=== PATIENT | male | born 1955 | race Caucasian/White ===

== ENCOUNTER 2020-06-19 10:14 | Inpatient (IN) | payer MEDICARE, SELFPAY ==
[2020-06-19] VITALS (62 sets, daily range): BP systolic 119–163; BP diastolic 57–79; PULSE 61–102; RESP 19–65; TEMP 36.1–37.7; O2SAT 66–100; BMI 28.3
--- NOTE | ~2020-06-19 | XR_ITS ---
EXAMINATION: XR chest ET placement INDICATION: Endotracheal tube insertion TECHNIQUE: Portable AP chest at 0943 hours COMPARISON: 06/28/2020 FINDINGS: An endotracheal tube has been inserted which ends 7.4 cm above the maria m. A nasogastric tu be has been inserted which ends in the stomach. There are diffuse opacities throughout all lung zones with worsening in the lung bases. The cardiomediastinal silhouette is normal. No definite pleural ef fusion or pneumothorax is identified. A right upper extremity PICC ends with its tip at the superior cavoatrial junction. IMPRESSION: 1. Endotracheal tube 7.4 cm above the maria m. Nasogastric tube in the stomach. 2. Diffuse lung disease with interval worsening in the lung bases, consistent with pneumonia and/or p ulmonary edema and/or acute respiratory distress syndrome (ARDS). Reviewed, dictated and finalized at location A. ICATION PACKAGING CONSULTANT IMPRESSION: 1. Endotracheal tube 7.4 cm above the maria m. Nasogastric tube in the stomach. 2. Diffuse lung disease with interval worsening in the lung bases, consistent w ith pneumonia and/or pulmonary edema and/or acute respiratory distress syndrome (ARDS).
--- NOTE | ~2020-06-19 | XR_ITS ---
EXAMINATION: XR chest 1V portable EXAM DATE: 06/28/2020 16:48 INDICATION: Worsening shortness of breath with exertion for 6 days. COVID pneumonia. PICC line placem ent. TECHNIQUE: Portable AP frontal chest x-ray was obtained. Comparison is made to prior examination from 06/27/2020, 06/23, 06/19. FINDINGS: There is a right-sided PICC line with tip projecting over the cavoatrial junction. Compare d to the prior chest x-rays, suspect mild interval progression in amount of acute airspace disease, r adiographically could be edema or infection. Probably COVID pneumonia given history provided. No pneu mothorax or pleural effusion. The cardiomediastinal silhouette is prominent but magnified on this AP technique. IMPRESSION: 1. PICC line in position. 2. Suspect mild progression in moderate to severe amount of acute airspace disease likely COVID pneu monia. Reviewed, dictated and finalized at location A. HET MACHINE OPERATOR IMPRESSION: 1. PICC line in position. 2. Suspect mild progression in moderate to severe amount of acute airspace dis ease likely COVID pneumonia.
--- NOTE | ~2020-06-19 | XR_ITS ---
EXAMINATION: XR chest 1V portable DATE: 06/27/2020 09:40 INDICATION: COVID 19 pneumonia. Worsening hypoxia. TECHNIQUE: frontal view of the chest was obtained. COMPARISON: Chest radiograph dated 06/23/2020 FINDINGS: Interval increase in diffuse bilateral interstitial and patchy airspace opacities relatively sparing the apices of the lungs. No pleural effusion or pneumothorax. The cardiomediastinal silhouette is nor mal. IMPRESSION: 1. Increasing diffuse bilateral lung disease relatively sparing the apices which could represent wors ening pneumonia, pulmonary edema or combination thereof. Reviewed, dictated and finalized at location A. DDER TENDER PEAT IMPRESSION: 1. Increasing diffuse bilateral lung disease relatively sparing the apices whic h could represent worsening pneumonia, pulmonary edema or combination thereof.
--- NOTE | ~2020-06-19 | XR_ITS ---
EXAMINATION: XR chest 1V portable DATE: 06/23/2020 10:26 INDICATION: COVID. TECHNIQUE: frontal view of the chest was obtained. COMPARISON: Chest radiograph and CT dated 06/19/2020 FINDINGS: Again seen are patchy groundglass opacities in the bilateral mid and lower lung zones. Resolution of the previous opacities in the upper lung zones. Slight increase in the density of the opacities in th e left lower lung zone. No pleural effusion or pneumothorax. The cardiomediastinal silhouette is norm al. IMPRESSION: 1. Bilateral lung disease with improvement in the bilateral upper lung zones and slight worsening in the left lower lung zone. Differential would include pneumonia, pulmonary edema or some combination t hereof. Reviewed, dictated and finalized at location A. D TAX AUDITOR IMPRESSION: 1. Bilateral lung disease with improvement in the bilateral upper lung zones an d slight worsening in the left lower lung zone. Differential would include pneu monia, pulmonary edema or some combination thereof.
--- NOTE | ~2020-06-19 | CT_ITS ---
EXAMINATION: CTA chest PE protocol DATE: 06/19/2020 11:45 INDICATION: Shortness of breath. TECHNIQUE: Computed tomography angiography (CTA) of the chest was performed with 100 mL Omnipaque-350 intravenous contrast timed to evaluate the pulmonary arteries. Coronal maximum intensity projection 3D-reconstructions were created by the technologist. Automated exposure control and iterative reconst ruction technique were employed. The dose-length product was 486.70 mGy-cm. COMPARISON: Chest single view 06/19/2020 FINDINGS: There are widespread groundglass opacities with smooth septal thickening. There are patchy airspace opacities in the upper and posterior lungs. There are small pleural effusions. The heart siz e is normal. No pericardial effusion. There is no pulmonary embolus. There are bridging endplate oste ophytes at multiple levels in the spine, consistent with diffuse idiopathic skeletal hyperostosis (DI SH). IMPRESSION: 1. No pulmonary embolism. Sensitivity is moderately decreased by motion artifact. 2. Diffuse lung disease, likely a combination of pulmonary edema and pneumonia. 3. Small pleural effusions. Reviewed, dictated and finalized at location A. Y MOBILE EQUIPMENT REPAIRER IMPRESSION: 1. No pulmonary embolism. Sensitivity is moderately decreased by motion artifac t. 2. Diffuse lung disease, likely a combination of pulmonary edema and pneumonia. 3. Small pleural effusions.
--- NOTE | ~2020-06-19 | XR_ITS ---
EXAMINATION: XR chest 1V portable INDICATION: Shortness of breath TECHNIQUE: Portable AP chest at 1056 hours COMPARISON: None available FINDINGS: There are patchy airspace opacities throughout all lung zones. There is no pleural effusion or pneumothorax. The cardiomediastinal silhouette is normal. IMPRESSION: 1. Diffuse lung disease which may reflect pneumonia and/or pulmonary edema. Reviewed, dictated and finalized at location A. ICAL AIDE
--- NOTE | 2020-06-19 10:17 | ECG_ITS ---
Measurements Intervals [place] Rate: 94 P: 43 NM: 100 QRS: 3 QRSD: 102 T: -8 QT: 355 QTc: 445 Interpretive Statements SINUS RHYTHM WITH SHORT NM INTERVAL LEFT ATRIAL ENLARGEMENT INCOMPLETE RIGHT BUNDLE BRANCH BLOCK BORDERLINE ST-T WAVE ABNORMALITY- ANTEROLAT/INF LEADS BASELINE ARTIFACT- I, II, III, AVL, AVF, V1-V3 BORDERLINE ECG Electronically Signed On 06-19-2020 11:08:49 ZONE MAINTENANCE TECHNICIAN by Simone Fields D.O.
--- NOTE | 2020-06-19 10:19 | ED.SOB ---
HPI - SOB/Dyspnea General Chief Complaint: Shortness of Breath/Dyspnea Stated Complaint: resp distress Time Seen by Provider: 06/19/20 10:16 Source: patient Mode of arrival: ambulatory Limitations: no limitations History of Present Illness HPI Narrative: Patient is a 64-year-old male brought in by EMS due to respiratory distress. Per EMS when they arrived his oxygen saturation room air was 40%. Patient was placed on 15 L nonrebreather brought his oxygen saturation up to 82%. Patient states that he has been slightly short of breath 4 days ago, worse today accompanied by cough. Patient denies any chest pain, abdominal pain, nausea, vomiting, diarrhea, fever or chills. Related Data Home Medications Medication Instructions Recorded Confirmed atorvastatin 20 mg PO DAILY 06/19/20 Allergies Allergy/AdvReac Type Severity Reaction Status Date / Time No Known Allergies Allergy Verified 06/19/20 10:34 Review of Systems Review of Systems: All systems reviewed & are unremarkable except as noted in HPI and below Constitutional: Constitutional: Denies body ache(s), Denies chills, Denies excessive sweating, Denies fatigue, Denies fever(s), Denies headache(s), Denies lethargy, Denies malaise, Denies weakness and Denies weight loss Eyes: Eyes: Denies blurry vision, Denies change in vision and Denies loss of vision ENT: Denies dizziness, Denies ear discharge, Denies headache(s), Denies lip swelling, Denies epistaxis, Denies nasal congestion, Denies neck pain, Denies throat swelling and Denies tongue swelling Cardiovascular: Cardiovascular: Denies chest pain, Denies chest pain at rest, Denies chest pain with activity, Denies diaphoresis, Denies rapid heart rate, Denies edema, Denies irregular heart rhythm, Denies lightheadedness and Denies palpitations Respiratory: Respiratory: Denies chest congestion, Denies cough and Denies hemoptysis Gastrointestinal: Gastrointestinal: Denies abdominal pain, Denies melena, Denies hematochezia, Denies diarrhea, Denies nausea, Denies vomiting and Denies hematemesis Musculoskeletal: Musculoskeletal: Denies abnormal gait, Denies deformity, Denies joint swelling, Denies limited range of motion, Denies neck pain and Denies numbness Neurologic: Denies Abnormal speech present, Denies abnormal gait, Denies confusion, Denies dizziness, Denies headache(s), Denies focal weakness, Denies loss of vision, Denies numbness, Denies Other visual disturbances, Denies Sensory deficit (Neuro) and Denies weakness Psychiatric: Psychiatric: Denies confusion, Denies depression, Denies auditory hallucinations, Denies homicidal ideation and Denies suicidal ideation Endocrine: Endocrine: Denies cold intolerance, Denies excessive sweating, Denies fatigue, Denies heat intolerance and Denies palpitations Hematologic/Lymphatic: Hematologic/Lymphatic: Denies easy bleeding and Denies easy bruising Allergic/Immunologic: Allergic/Immunologic: Denies lip swelling, Denies throat swelling and Denies tongue swelling PMFSH Social History Social History Gender identity (if verbalized by the patient): Male Exam Const: General: ill appearing Nutritional Appearance: well nourished Orientation/consciousness: oriented to person, oriented to place, oriented to time, patient oriented x3 and No confusion Limitations: no limitations Other: Severe distress HENMT: Head: normal to inspection, normocephalic and atraumatic Ears: hearing grossly normal bilaterally, TM normal on the right and TM normal on the left General nose exam: Normal external nose present, Normal nares present and No nasal discharge present Face and sinus: normal facial exam Mouth: Yes Normal oral and palatal mucosa present, Yes lip normal, Yes tongue normal and Yes oropharynx normal Throat: posterior oropharynx normal, tonsils normal and uvula midline Eyes: General: appearance normal, both eyes and all related structures Pupil
[2020-06-19] MEDS: ALBUTEROL SULFATE NEB 2.5 MG/0.5 ML INH 5 MG INHALATION (10:32)
[2020-06-19] MEDS: IPRATROPIUM BR 0.02% INH SOLN 0.5 MG/2.5 ML VIAL INHALATION (10:33)
[2020-06-19 10:37] LABS: Hematocrit 41.3 % (42.0-52.0); Hemoglobin 13.8 g/dL (14.0-18.0); Mean Corpuscular HGB Conc 33.4 g/dl (32-36); Mean Corpuscular Volume 89.8 fl (80-100); Mean Platelet Volume 9.9 fl (7.4-10.4); Platelet Count Result 344 k/mm3 (150-375); Red Cell Distribution Width 13.9 % (11.5-14.5); White Blood Count 16.1 K/mm3 (4.5-10.0)
[2020-06-19] MEDS: DEXAMETHASONE SOD PHOS INJ 4 MG/ML VIAL 10 MG IV PUSH (10:37)
[2020-06-19 10:42] LABS: Alveolar/Arterial O2 Gradient 611.7 mmHg; Base Excess ABG -0.3 mEq/l (+/-2.0); Device NON-INVASIVE VENT; Fractional Inspired Oxygen 100 %; Modified Allen's Test Pass; Oxygen Content ABG 18.2 %vol (16.0-22.0); Oxygen Saturation ABG 95.7 % (95.0-100.0); Oxyhemoglobin 93.9 % THb (90.0-100.0); PCO2 ABG 29.6 mmHg (35.0-45.0); PO2 ABG 71.7 mmHg (80.0-100.0); PO2 FiO2 Ratio Arterial Blood 0.72 %; Site Drawn RIGHT RADIAL; Total Hemoglobin 13.8 g/dL (12.0-18.0); pH ABG 7.489 (7.350-7.450)
[2020-06-19 10:43] LABS: Non-Invasive Expiratory Pressure 5 CMH2O; Non-Invasive Inspiratory Pressure 12 CMH2O; Non-Invasive Vent Rate 4 /MIN
[2020-06-19 10:45] LABS: INR 1.2; Prothrombin Time 15.6 Seconds (11.1-14.7)
[2020-06-19 10:46] LABS: Partial Thromboplastin Time 27.2 SECONDS (22.3-36.8)
[2020-06-19 10:46] LABS: Anisocytosis 1+ (NORMAL); Lymphocytes Absolute Manual 0.48 K/mm3 (1.1-4.5); Monocytes Absolute Manual 0.96 K/mm3 (0.1-0.90); Monocytes Percent Manual 6 % (3-9); Neutrophils Percent Manual 91 % (46-73); Nucleated Red Blood Cells 1 %; Platelet Estimate Adequate (Adequate); Total Cells Counted 100
[2020-06-19 10:47] LABS: Tear Drop Cells 1+ (NORMAL)
[2020-06-19 11:02] LABS: D Dimer 1.83 ug/mL (<0.48)
[2020-06-19 11:13] LABS: Alanine Aminotransferase 41 U/L (4-50); Albumin Level 3.7 g/dL (3.5-5.1); Alkaline Phosphatase 79 U/L (38-126); Anion Gap 14 mmol/L (8-16); Aspartate Amino Transferase 71 U/L (17-59); Bilirubin,Total 0.8 mg/dL (0.2-1.3); Blood Urea Nitrogen 26 mg/dL (9-20); Calcium 8.1 mg/dL (8.4-10.2); Carbon Dioxide 26 mmol/L (22-30); Chloride 97 mmol/L (98-107); Estimated Glomerular Filt Rate 51; Glucose 156 mg/dL (75-110); NT Pro B Type Natriuretic Pept 4370 PG/ML (5-100); Potassium 3.9 mmol/L (3.4-5.0); Sodium 137 mmol/L (137-145); Troponin I 0.494 ng/mL (0.000-0.034)
[2020-06-19] MEDS: ASPIRIN 81 MG CHEWABLE TABLET 324 MG PO (11:59)
--- NOTE | 2020-06-19 12:05 | PC.NURSE ---
Spoke with - Isaura - over the phone. She was requesting an update - explained that pt is on O2 and will most likely to be admitted. She states she will call back later for an update
--- NOTE | 2020-06-19 15:01 | PC.NURSE ---
resting on stretcher. on threat monitoring analyst. lights off. on bipap. update given to patient's via phone.
--- NOTE | 2020-06-19 17:43 | PC.NURSE ---
report given to Camryn BRIZUELA. will transfer patient to 209. will contact respiratory for O2 required to transport. also updated.
--- NOTE | 2020-06-19 17:55 | PC.NURSE ---
this RN to bedside to get patient ready for transfer to 209. sat on bipap 85-86%. patient alert. repositioned in bed. respiratory notified and at bedside. will transfer to 209 on NRB and back on bipap. patient aware.
--- NOTE | 2020-06-19 18:22 | ADMGEN ---
This patient, Que Luna, was admitted to IMU Room 209-01 at 1815. Patient/family oriented to hospital policies and general routines including ID bracelet, bed and alarms, visiting hours, pain management, procedures, bathroom and other care routines, personal items, smoking policy, room service/diet, and visiting hours. Information on how to activate the Rapid Response Team has been discussed. Patient/Family are encouraged to report perceived risks to care and to ask questions if they do not understand what they are told or what they should do.
--- NOTE | 2020-06-19 19:16 | PM.IMHP ---
H&P: HPI History of Present Illness Date/Time: 06/19/20 19:16 Chief Complaint: Shortness of breath Narrative: Que Luna is a 64 year old male who has a history of hyperlipidemia. The patient stated that he has been home bound since COVID started. He does not know of anybody that has COVID. He does not believe that he has COVID or been exposed to COVID. 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 To respiratory distress. The patient arrived his oxygen level was 40% on room air. The patient was placed on a 15 L non-rebreather and brought his oxygen level to 82%. Patient has been slightly short of breath for at least the last 4 days. He also had a cough. But no fever chills. No abdominal pain no chest pain no nausea vomiting or diarrhea. No fever no chills.Disease which may reflect pneumonia or pulmonary edema.. Sensitivity is moderately decreased by motion artifact. Diffuse lung disease likely a combination pulmonary edema pneumonia. Small pleural effusions. Like a community-acquired pneumonia and was started on a azithromycin Rocephin. The patient was given a nebulizer treatment and aspirin. The patient was started on a BiPAP machine. The patient is awake and conversing. His white count is 16.1. COVID test is pending. Arterial blood gases were drawn. PH was 7.489 and PO2 was 71.7. He was also given Decadron and inhalers. Patient is being admitted to inpatient on the date of service 06/19/2020 Review of Systems Review of Systems: All systems reviewed & are unremarkable except as noted in HPI and below Constitutional: Constitutional: Reports as per HPI and Reports no additional constitutional complaints Eyes: Eyes: Reports as per HPI and Reports no additional eye complaints ENT: Reports system reviewed and no additional complaints, except as documented and Reports Normal hearing present Cardiovascular: Cardiovascular: Reports no additional cardiovascular complaints Respiratory: Respiratory: Reports no additional respiratory complaints and Reports no additional respiratory complaints Gastrointestinal: Gastrointestinal: Reports as per HPI and Reports no additional gastrointestinal complaints Musculoskeletal: Musculoskeletal: Reports no additional musculoskeletal complaints Integumentary/Breasts: Skin/Breast: Reports system reviewed and no additional complaints, except as docu and Reports as per HPI Neurologic: Reports system reviewed and no additional complaints, except as documented, Reports as per HPI and Reports Normal hearing present Psychiatric: Psychiatric: Reports no additional psychiatric complaints and Reports as per HPI Endocrine: Endocrine: Reports no additional endocrine complaints Hematologic/Lymphatic: Hematologic/Lymphatic: Reports no additional hematologic/lymphatic complaints Allergic/Immunologic: Allergic/Immunologic: Reports no additional allergic/immunologic complaints [facility] Past Medical History Medical History (Updated 06/19/20 @ 19:32 by Valentina Perez NP) Glaucoma Hyperlipidemia Surgical History Surgical History (Updated 06/19/20 @ 19:25 by Valentina Perez NP) H/O removal of cyst Left thumb Family History Family History (Updated 06/19/20 @ 19:25 by Valentina Perez NP) Father Aneurysm Mother Failure to thrive Social History Social History (Updated 06/19/20 @ 19:27 by Valentina Perez NP) Social History: The patient tells me that he lives with his . 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 He has 2 children. He is a full code. But he would not like to be on a ventilator for a prolonged amount of time. His is the durable power prosecuting attorney for healthcare. He has never smoked or used marijuana or any illicit drugs. Smoking status: Never smoker Gender identity (if verbalized by the patient): Male Meds Home Medications and Allergies Home Medications Medication Instructions Recorded Conf
[2020-06-19 20:54] LABS: SARS-CoV-2 RNA PCR Positive
[2020-06-19] MEDS: ALBUTEROL SULFATE (*SP) AEROSOL 1 PUFF 2 PUFF INHALATION (22:15)
--- NOTE | 2020-06-19 22:18 | ECG_ITS ---
Measurements Intervals [place] Rate: 59 P: 59 NC: 104 QRS: 17 QRSD: 89 T: -18 QT: 574 QTc: 573 Interpretive Statements SINUS BRADYCARDIA WITH SHORT NC INTERVAL INCOMPLETE RIGHT BUNDLE BRANCH BLOCK MINIMAL Q WAVES- ANTEROLAT/HIGH LAT LEADS BORDERLINE ST-T WAVE ABNORMALITY- INFERIOR LEADS PROLONGED QT INTERVAL BASELINE ARTIFACT- I, III, AVR, AVL, AVF, V2-V4 ABNORMAL ECG Electronically Signed On 06-20-2020 13:47:28 RENTAL SALES ASSOCIATE by Simone Fields D.O.
[2020-06-19 23:06] LABS: Alanine Aminotransferase 33 U/L (4-50); Estimated CRCL calculation 71 ml/min; Estimated Glomerular Filt Rate > 60
[2020-06-19 23:23] LABS: Troponin I 0.247 ng/mL (0.000-0.034)
[2020-06-19] MEDS: REMDESIVIR 200 MG/NS 250 ML 200 MG/250 ML BAG 250 MG IVPB (23:39)
[2020-06-20] VITALS (17 sets, daily range): BP systolic 120–138; BP diastolic 55–67; PULSE 55–88; RESP 20–48; TEMP 36.1–37.7; O2SAT 90–100
--- NOTE | 2020-06-20 | ECHO_ITS ---
Patient Info Name: Que Luna Age: 64 years : 1955 Gender: Male Ht: 72 in Wt: 208 lbs BSA: 2.21 m2 HR: 63 bpm BP: 129 / 67 mmHg Technical Quality: Good Exam Date: 06/20/2020 11:01 AM Exam Location: [facility] Patient Status: Inpatient Admit Date: 06/19/2020 Staff Ordering Physician: Valentina Perez NP Electric Locomotive Crane Operator: John Paul Shook RDCS, RT Attending Provider: Clyde Montanez MD Referring Physician: Ana SOLIZ; Exam Type: CA echo doppler color flow Study Info Indications I50.9 - Heart failure, unspecified Complete two-dimensional, color flow and Doppler transthoracic echocardiogram is performed. Strain analysis performed. Summary 1. Complete two-dimensional, color flow and Doppler transthoracic echocardiogram is performed. 2. Left ventricular chamber dimension is normal. 3. Left ventricular systolic function is normal, estimated at 60-65%. 4. The left ventricular diastolic function is normal. 5. E/e' 8 is minimally elevated. 6. Global longitudinal strain is abnormal at -14.7%. 7. There is mild mitral valve regurgitation. 8. There is mild tricuspid valve regurgitation. 9. Mild pulmonary hypertension, estimated pulmonary arterial systolic pressure is 45 mmHg. 10. There is trivial pericardial effusion. Left Ventricle E/e' 8 is minimally elevated. Global longitudinal strain is abnormal at -14.7%. Left ventricular chamber dimension is normal. Left ventricular systolic function is normal, estimated at 60-65%. The left ventricular diastolic function is normal. Right Ventricle Right ventricular chamber dimension is normal. Right ventricular systolic function is normal. Left Atria Left atrial chamber dimension is normal. Right Atria Right atrial chamber dimension is normal. Aortic Valve The aortic valve is trileaflet. There is no aortic valve stenosis. There is no aortic valve regurgitation. Pulmonic Valve There is no pulmonic regurgitation. Mitral Valve There is no mitral valve stenosis. There is mild mitral valve regurgitation. Tricuspid Valve There is mild tricuspid valve regurgitation. Mild pulmonary hypertension, estimated pulmonary arterial systolic pressure is 45 mmHg. Pericardium/Pleural There is trivial pericardial effusion. Inferior Vena Cava Normal inferior vena cava with >50% collapse upon inspiration consistent with normal right atrial pressure, 5 mmHg. Aorta The aortic root size at the sinus of Valsalva is normal. Left Ventricular Outflow Tract Name Value Normal LVOT 2D LVOT Diameter 1.9 cm LVOT Doppler LVOT Peak Gradient 6 mmHg LVOT Mean Gradient 3 mmHg LVOT VTI 27 cm LVOT VTI/AV VTI Ratio 0.9 LVOT Stroke Volume 74 ml LVOT CO 4.7 l/min LVOT CI 2.1 l/min/m2 Mitral Valve Name Value Normal
[2020-06-20] MEDS: ALBUTEROL SULFATE (*SP) AEROSOL 1 PUFF 2 PUFF INHALATION ×4 (03:04→20:24)
[2020-06-20 05:56] LABS: Basophils Percent Auto 0.1 % (0.2-1.2); Hematocrit 37.4 % (42.0-52.0); Hemoglobin 12.4 g/dL (14.0-18.0); Immature Granulocyte Absolute 0.15 K/mm3 (0.00-0.031); Immature Granulocyte Percent A 0.9 % (0-0.5); Lymphocytes Absolute Auto 1.29 K/mm3 (0.9-3.2); Lymphocytes Percent Auto 7.8 % (18.3-44.2); Mean Corpuscular HGB Conc 33.2 g/dl (32-36); Mean Corpuscular Hemoglobin 29.8 pg (26-34); Mean Corpuscular Volume 89.9 fl (80-100); Mean Platelet Volume 10.1 fl (7.4-10.4); Monocytes Absolute Auto 0.8 K/mm3 (0.1-0.6); Neutrophils Absolute Auto 14.3 K/mm3 (1.3-6.7); Neutrophils Percent Auto 86.2 % (45.5-73.1); Platelet Count Result 291 k/mm3 (150-375); Red Blood Count 4.16 M/mm3 (4.6-6.20); Red Cell Distribution Width 13.9 % (11.5-14.5); White Blood Count 16.6 K/mm3 (4.5-10.0)
[2020-06-20 06:13] LABS: Alanine Aminotransferase 31 U/L (4-50); Albumin Level 3.3 g/dL (3.5-5.1); Alkaline Phosphatase 69 U/L (38-126); Anion Gap 8 mmol/L (8-16); Aspartate Amino Transferase 46 U/L (17-59); Bilirubin,Total 0.6 mg/dL (0.2-1.3); Blood Urea Nitrogen 26 mg/dL (9-20); Carbon Dioxide 31 mmol/L (22-30); Chloride 100 mmol/L (98-107); Estimated CRCL calculation 79 ml/min; Estimated Glomerular Filt Rate > 60; Glucose 160 mg/dL (75-110); Lactate Dehydrogenase 1761 U/L (313-618); Magnesium 3.1 mg/dL (1.6-2.3); Potassium 3.9 mmol/L (3.4-5.0); Sodium 139 mmol/L (137-145)
[2020-06-20 06:22] LABS: Troponin I 0.128 ng/mL (0.000-0.034)
[2020-06-20 06:43] LABS: CRP 32.3 mg/dL (<1.0)
[2020-06-20 06:55] LABS: Thyroid Stimulating Hormone Reflex 0.218 uIU/mL (0.465-4.68)
[2020-06-20 07:26] LABS: Free T4 Free Thyroxine Reflex 1.22 ng/dL (0.78-2.19)
[2020-06-20 08:26] LABS: Total Triiodothyronine (T3) 0.82 NG/ML (0.97-1.69)
[2020-06-20] MEDS: ENOXAPARIN 40 MG/0.4 ML SYRINGE SUB-Q (09:44)
[2020-06-20] MEDS: TIMOLOL MALEATE 0.5% OP SOLN 5 ML BOTTLE 1 DROP EACH EYE (09:45)
[2020-06-20] MEDS: DEXAMETHASONE SOD PHOS INJ 4 MG/ML VIAL 6 MG IV PUSH (09:45)
--- NOTE | 2020-06-20 11:30 | PM.IMPN ---
Progress Note: A&P Assessment and Plan (1) Glaucoma: Code(s): H40.9 - Unspecified glaucoma Status: Chronic Assessment and Plan: stable continue home medication (2) Hyperlipidemia: Code(s): E78.5 - Hyperlipidemia, unspecified Status: Chronic Assessment and Plan: stable continue home medication (3) Acute respiratory failure with hypoxia: Code(s): J96.01 - Acute respiratory failure with hypoxia Status: Acute Assessment and Plan: multifactorial secondary to pulmonary edema and pneumonia start IV diuresis continue antibiotic pending culture most likely pneumonia secondary to COVID-19 cannot rule out secondary bacterial infection (4) Pneumonia due to 2019-nCoV: Code(s): U07.1 - COVID-19; J12.82 - Pneumonia due to coronavirus disease 2018 Status: Acute Assessment and Plan: dexamethasone started on 06/19/2020 remdisever started on 06/19/2020 inhaler treatment vitamin-D vitamin-C zinc (5) NSTEMI (non-ST elevated myocardial infarction): Code(s): I21.4 - Non-ST elevation (NSTEMI) myocardial infarction Status: Acute Assessment and Plan: most likely NSTEMI type 2 secondary to demand ischemia secondary to COVID-19 pneumonia (6) Pulmonary edema: Code(s): J81.1 - Chronic pulmonary edema Status: Acute Additional Plan pending echo start gentle IV diuresis probably cardiogenic Subjective Date/time seen: 06/20/20 11:30 Interval history: patient was admitted to the hospital with shortness of breath and hypoxia was found to have COVID-19 positive had chest x-ray and CT scan showed pneumonia and possible pulmonary edema COVID-19 was done was positive patient was started on dexamethasone and remdisever patient was placed on BiPAP because of severe hypoxia patient also has elevated troponin most likely NSTEMI type 2 secondary to demand ischemia echo was ordered Patient feels weak short of breath Patient denies fever headache chehst pain I am seeing the patient for COVID-19 pneumonia Exam Narrative: Exam Narrative: Alert Chest positive crackles and wheeze Abdomen nontender nondistended CVS S1 + S2 positive Lower extremity edema Objective Data Vital Signs Vital Signs: Vital Signs - 24 hr 06/19/20 11:31 06/19/20 11:45 06/19/20 11:50 Temperature Pulse Rate 91 88 82 Respiratory Rate 31 H 34 H 38 H Blood Pressure 122/76 Pulse Oximetry 78 L 100 06/19/20 11:52 06/19/20 12:00 06/19/20 12:01 Temperature Pulse Rate 88 84 83 Respiratory Rate 40 H 45 H 43 H Blood Pressure 127/59 L 138/78 Pulse Oximetry 93 94 94 06/19/20 12:15 06/19/20 12:16 06/19/20 12:17 Temperature Pulse Rate 78 80 78 Respiratory Rate 44 H 41 H 46 H Blood Pressure 130/74 Pulse Oximetry 96 94 94 06/19/20 12:18 06/19/20 12:35 06/19/20 12:45 Temperature Pulse Rate 83 81 76 Respiratory Rate 42 H 26 H Blood Pressure Pulse Oximetry 94 96 96 06/19/20 12:46 06/19/20 13:02 06/19/20 13:15 Temperature Pulse Rate 74 76 75 Respiratory Rate 26 H 36 H 41 H Blood Pressure 131/76 Pulse Oximetry 96 90 93 06/19/20 13:16 06/19/20 13:30 06/19/20 13:31 Temperature Pulse Rate 75 73 73 Respiratory Rate 35 H 33 H 36 H Blood Pressure 127/79 130/77 Pulse Oximetry 93 95 94 06/19/20 13:32 06/19/20 13:45 06/19/20 13:46 Temperature Pulse Rate 71 72 71 Respiratory Rate 32 H 39 H 36 H Blood Pressure 128/74 Pulse Oximetry 92 92 92 06/19/20 14:21 06/19/20 14:25 06/19/20 14:30 Temperature Pulse Rate 74 69 69 Respiratory Rate 38 H 30 H 39 H Blood Pressure Pulse Oximetry 95 95 95 06/19/20 14:31 06/19/20 14:32 06/19/20 15:00 Temperature Pulse Rate 69 70 69 Respiratory Rate 41 H 32 H 38 H Blood Pressure 119/67 Pulse Oximetry 94 96 96 06/19/20 15:01 06/19/20 15:15 06/19/20 15:16 Temperature Pulse Rate 70 70 70 Respiratory Rate 40 H 42 H 40 H Blood Pressure 126/69 12
[2020-06-20] MEDS: ZINC SULFATE 220 MG CAPSULE PO (14:23)
[2020-06-20] MEDS: CHOLECALCIFEROL 1,000 UNITS TABLET 2000 UNITS PO (14:23)
[2020-06-20] MEDS: ASCORBIC ACID 500 MG TABLET 1000 MG PO (14:23)
[2020-06-20] MEDS: FUROSEMIDE INJ 40 MG/4 ML VIAL IV PUSH (19:49)
[2020-06-20] MEDS: REMDESIVIR 100 MG/NS 250 ML 100 MG/250 ML BAG 250 MG IVPB (20:24)
[2020-06-21] VITALS (18 sets, daily range): BP systolic 114–136; BP diastolic 50–71; PULSE 54–76; RESP 20–30; TEMP 36.2–36.8; O2SAT 91–99
[2020-06-21] MEDS: ALBUTEROL SULFATE (*SP) AEROSOL 1 PUFF 2 PUFF INHALATION ×2 (04:54→20:46)
[2020-06-21 05:31] LABS: Alanine Aminotransferase 34 U/L (4-50); Estimated CRCL calculation 79 ml/min; Estimated Glomerular Filt Rate > 60
[2020-06-21] MEDS: ZINC SULFATE 220 MG CAPSULE PO (10:07)
[2020-06-21] MEDS: FUROSEMIDE INJ 40 MG/4 ML VIAL IV PUSH ×2 (10:07→16:37)
[2020-06-21] MEDS: DEXAMETHASONE SOD PHOS INJ 4 MG/ML VIAL 6 MG IV PUSH (10:07)
[2020-06-21] MEDS: CHOLECALCIFEROL 1,000 UNITS TABLET 2000 UNITS PO (10:07)
[2020-06-21] MEDS: ASCORBIC ACID 500 MG TABLET 1000 MG PO (10:07)
[2020-06-21] MEDS: TIMOLOL MALEATE 0.5% OP SOLN 5 ML BOTTLE 1 DROP EACH EYE (10:08)
[2020-06-21] MEDS: ENOXAPARIN 40 MG/0.4 ML SYRINGE SUB-Q (10:08)
--- NOTE | 2020-06-21 11:02 | PM.IMPN ---
Progress Note: A&P Assessment and Plan (1) Glaucoma: Code(s): H40.9 - Unspecified glaucoma Status: Chronic Assessment and Plan: stable continue home medication (2) Hyperlipidemia: Code(s): E78.5 - Hyperlipidemia, unspecified Status: Chronic Assessment and Plan: stable continue home medication (3) Acute respiratory failure with hypoxia: Code(s): J96.01 - Acute respiratory failure with hypoxia Status: Acute Assessment and Plan: multifactorial secondary to pulmonary edema and pneumonia start IV diuresis continue antibiotic pending culture most likely pneumonia secondary to COVID-19 cannot rule out secondary bacterial infection continue IV antibiotics worsening overnight requiring continuous BiPAP critical care eval pulmonology evaluation (4) Pneumonia due to 2019-nCoV: Code(s): U07.1 - COVID-19; J12.82 - Pneumonia due to coronavirus disease 2018 Status: Acute Assessment and Plan: dexamethasone started on 06/19/2020 remdisever started on 06/19/2020 inhaler treatment vitamin-D vitamin-C zinc (5) NSTEMI (non-ST elevated myocardial infarction): Code(s): I21.4 - Non-ST elevation (NSTEMI) myocardial infarction Status: Acute Assessment and Plan: most likely NSTEMI type 2 secondary to demand ischemia secondary to COVID-19 pneumonia (6) Pulmonary edema: Code(s): J81.1 - Chronic pulmonary edema Status: Acute Assessment and Plan: echo gentle IV diuresis probably cardiogenic Subjective Date/time seen: 06/21/20 11:02 Interval history: patient was admitted to the hospital with shortness of breath and hypoxia was found to have COVID-19 positive had chest x-ray and CT scan showed pneumonia and possible pulmonary edema COVID-19 was done was positive patient was started on dexamethasone and remdisever patient was placed on BiPAP because of severe hypoxia patient also has elevated troponin most likely NSTEMI type 2 secondary to demand ischemia echo was ordered 06/21/2020 patient has been on BiPAP overnight with 100% FiO2 discussed with critical care for evaluation Patient feels weak short of breath patient okay with short-term intubation Patient denies fever headache chehst pain I am seeing the patient for COVID-19 pneumonia Exam Narrative: Exam Narrative: Alert on BiPAP Chest positive crackles and wheeze Abdomen nontender nondistended CVS S1 + S2 positive Lower extremity edema Objective Data Vital Signs Vital Signs: Vital Signs - 24 hr 06/20/20 12:00 06/20/20 14:00 06/20/20 16:00 Temperature 98.5 F 97.6 F Pulse Rate 62 58 L 62 Respiratory Rate 28 H 22 H Blood Pressure 127/55 L 120/57 L Pulse Oximetry 90 94 06/20/20 17:40 06/20/20 17:59 06/20/20 20:00 Temperature 97.6 F Pulse Rate 68 64 58 L Respiratory Rate 26 H 48 H Blood Pressure 138/65 Pulse Oximetry 92 95 06/20/20 21:38 06/20/20 21:45 06/20/20 23:26 Temperature Pulse Rate 55 L 87 Respiratory Rate 28 H Blood Pressure Pulse Oximetry 96 91 06/20/20 23:44 06/21/20 00:00 06/21/20 01:28 Temperature 97.4 F L Pulse Rate 87 55 L 55 L Respiratory Rate 28 H Blood Pressure 123/58 L Pulse Oximetry 100 06/21/20 03:39 06/21/20 04:00 06/21/20 08:00 Temperature 97.2 F L 97.6 F Pulse Rate 58 L 56 L 70 Respiratory Rate 22 H 24 H 22 H Blood Pressure 118/64 136/69 Pulse Oximetry 95 93 98 06/21/20 08:15 Temperature Pulse Rate 70 Respiratory Rate 22 H Blood Pressure Pulse Oximetry 98 Intake/Output Intake/Output: Intake & Output 06/18/20 06/19/20 06/20/20 06/21/20 23:59 23:59 23:59 23:59 Intake Total 300 1180 Output Total 588 857 3999 Balance -540 680 -1700 Meds/Results Medications: Active Medications Generic Name Dose Route Start Last Admin Trade Name Freq PRN Reason Stop Dose Admin Albuterol 2 puff 06/19/20 20:00 06/21/20 04:54 Albuterol Sulfate (*Sp) Aerosol
[2020-06-21 11:23] LABS: Alveolar/Arterial O2 Gradient 571.6 mmHg; Fractional Inspired Oxygen 93 %; HCO3 ABG 30.7 mEq/l (22.0-26.0); Oxygen Content ABG 19.1 %vol (16.0-22.0); Oxygen Saturation ABG 91.9 % (95.0-100.0); PCO2 ABG 36.4 mmHg (35.0-45.0); PO2 ABG 54.5 mmHg (80.0-100.0); PO2 FiO2 Ratio Arterial Blood 0.59 %; Total Hemoglobin 15.3 g/dL (12.0-18.0)
[2020-06-21 11:24] LABS: Device HIGH FLOW THERAPY; Modified Allen's Test Pass; Site Drawn RIGHT RADIAL; pH ABG 7.544 (7.350-7.450)
[2020-06-21 12:05] LABS: Alanine Aminotransferase 33 U/L (4-50); Albumin Level 3.4 g/dL (3.5-5.1); Alkaline Phosphatase 81 U/L (38-126); Anion Gap 6 mmol/L (8-16); Aspartate Amino Transferase 48 U/L (17-59); Bilirubin,Total 0.8 mg/dL (0.2-1.3); Blood Urea Nitrogen 33 mg/dL (9-20); Calcium 8.1 mg/dL (8.4-10.2); Carbon Dioxide 36 mmol/L (22-30); Chloride 97 mmol/L (98-107); Estimated CRCL calculation 88 ml/min; Estimated Glomerular Filt Rate > 60; Glucose 150 mg/dL (75-110); Potassium 3.6 mmol/L (3.4-5.0); Sodium 139 mmol/L (137-145)
[2020-06-21 12:19] LABS: Basophils Absolute Auto 0.1 K/mm3 (0.0-0.1); Basophils Percent Auto 0.3 % (0.2-1.2); Hematocrit 42.8 % (42.0-52.0); Hemoglobin 14.3 g/dL (14.0-18.0); Immature Granulocyte Absolute 0.12 K/mm3 (0.00-0.031); Immature Granulocyte Percent A 0.6 % (0-0.5); Lymphocytes Absolute Auto 1.03 K/mm3 (0.9-3.2); Lymphocytes Percent Auto 5.5 % (18.3-44.2); Mean Corpuscular HGB Conc 33.4 g/dl (32-36); Mean Corpuscular Volume 89.7 fl (80-100); Mean Platelet Volume 10.4 fl (7.4-10.4); Monocytes Absolute Auto 0.8 K/mm3 (0.1-0.6); Monocytes Percent Auto 4.3 % (2.6-8.5); Neutrophils Absolute Auto 16.8 K/mm3 (1.3-6.7); Neutrophils Percent Auto 89.3 % (45.5-73.1); Platelet Count Result 321 k/mm3 (150-375); Red Blood Count 4.77 M/mm3 (4.6-6.20); Red Cell Distribution Width 13.8 % (11.5-14.5); White Blood Count 18.8 K/mm3 (4.5-10.0)
--- NOTE | 2020-06-21 15:41 | PM.CNPUL ---
Assessment and Plan Assessment and plan (1) Pneumonia due to 2019-nCoV: Code(s): U07.1 - COVID-19; J12.82 - Pneumonia due to coronavirus disease 2019 Status: Acute Assessment and Plan: Continue dexamethasone and remdesivir for a total of 10 days. Will add budesonide 1 mg nebulized q.12 hours consider discontinuing ceftriaxone and azithromycin as it is unlikely that he has superimposed bacterial pneumonia Continue DVT prophylaxis with Lovenox 40 mg q.12 hours subcutaneously (2) Acute respiratory failure with hypoxia: Code(s): J96.01 - Acute respiratory failure with hypoxia Status: Acute Assessment and Plan: continue high-flow oxygen and or noninvasive ventilation to maintain O2 saturations 88% or better. Recommended prone positioning for 12-16 hours a day and he has agreed to try this as tolerated. History of Present Illness History of Present Illness Consult date: 06/21/20 Chief complaint: acute respiratory failure/pneumonia Narrative: This is a 64-year-old male who presents with a 4 day history of increased shortness of breath, feeling weak and decrease in appetite. He was diagnosed with COVID-19 of pneumonia on admission with acute hypoxemic respiratory failure. His other medical history include glaucoma and hyperlipidemia. He has no history of hypertension, diabetes, cardiovascular disease or lung disease. He has no history of smoking. He appears comfortable on high-flow oxygen with 100% non-rebreather face mask. He has been started on dexamethasone and remdesivir per protocol. Review of Systems Review of Systems: All systems reviewed & are unremarkable except as noted in HPI and below PMFSH Past Medical History Medical History (Updated 06/20/20 @ 11:33 by Mellissa Ruiz MD) Glaucoma Hyperlipidemia Surgical History Surgical History (Updated 06/19/20 @ 19:25 by Valentina Perez NP) H/O removal of cyst Left thumb Family History Family History Father Aneurysm Mother Failure to thrive Social History Social History (Updated 06/19/20 @ 19:27 by Valentina Perez NP) Social History: The patient tells me that he lives with his . 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 He has 2 children. He is a full code. But he would not like to be on a ventilator for a prolonged amount of time. His is the durable power banking attorney for healthcare. He has never smoked or used marijuana or any illicit drugs. Smoking status: Never smoker Gender identity (if verbalized by the patient): Male Meds Home Medications and Allergies Home Medications Medication Instructions Recorded Confirmed Type atorvastatin 20 mg PO DAILY 06/19/20 06/19/20 History timolol maleate 1 drp EACH EYE DAILY 06/19/20 06/19/20 History Allergies Allergy/AdvReac Type Severity Reaction Status Date / Time No Known Allergies Allergy Verified 06/19/20 18:27 Vital Signs Vital Signs - 24 hr 06/20/20 16:00 06/20/20 17:40 06/20/20 17:59 Temperature 36.4 C Pulse Rate 62 68 64 Respiratory Rate 22 H 26 H Blood Pressure 120/57 L Pulse Oximetry 94 92 06/20/20 20:00 06/20/20 21:38 06/20/20 21:45 Temperature 36.4 C Pulse Rate 58 L 55 L 87 Respiratory Rate 48 H 28 H Blood Pressure 138/65 Pulse Oximetry 95 96 06/20/20 23:26 06/20/20 23:44 06/21/20 00:00 Temperature 36.3 C L Pulse Rate 87 55 L Respiratory Rate 28 H Blood Pressure 123/58 L Pulse Oximetry 91 100 06/21/20 01:28 06/21/20 03:39 06/21/20 04:00 Temperature 36.2 C L Pulse Rate 55 L 58 L 56 L Respiratory Rate 22 H 24 H Blood Pressure 118/64 Pulse Oximetry 95 93 06/21/20 08:00 06/21/20 08:15 06/21/20 10:00 Temperature 36.4 C Pulse Rate 70 70 54 L Respiratory Rate 22 H 22 H Blood Pressure 136/69 Pulse Oximetry 98 98 06/21/20 11:51 06/21/20 12:00 06/21/20 14:00 Temperature 36.8 C Pulse Rate 57 L 5
--- NOTE | 2020-06-21 17:48 | PC.NURSE ---
Per patient wishes, and discussion with spouse, Isaura, patient code status changed to DNR/DNI.
[2020-06-21] MEDS: BUDESONIDE RESPULE NEB 0.5 MG/2 ML AMP 1 MG INHALATION (20:47)
[2020-06-21] MEDS: REMDESIVIR 100 MG/NS 250 ML 100 MG/250 ML BAG 250 MG IVPB (21:03)
[2020-06-22] VITALS (22 sets, daily range): BP systolic 121–131; BP diastolic 45–67; PULSE 49–94; RESP 22–26; TEMP 36.3–36.6; O2SAT 90–100
[2020-06-22 06:23] LABS: Basophils Percent Auto 0.2 % (0.2-1.2); Hematocrit 42.1 % (42.0-52.0); Immature Granulocyte Absolute 0.11 K/mm3 (0.00-0.031); Immature Granulocyte Percent A 0.6 % (0-0.5); Lymphocytes Absolute Auto 1.19 K/mm3 (0.9-3.2); Lymphocytes Percent Auto 6.7 % (18.3-44.2); Mean Corpuscular HGB Conc 33.3 g/dl (32-36); Mean Corpuscular Hemoglobin 29.2 pg (26-34); Mean Corpuscular Volume 87.9 fl (80-100); Monocytes Absolute Auto 0.9 K/mm3 (0.1-0.6); Monocytes Percent Auto 4.9 % (2.6-8.5); Neutrophils Absolute Auto 15.6 K/mm3 (1.3-6.7); Neutrophils Percent Auto 87.6 % (45.5-73.1); Platelet Count Result 332 k/mm3 (150-375); Red Blood Count 4.79 M/mm3 (4.6-6.20); Red Cell Distribution Width 13.6 % (11.5-14.5); White Blood Count 17.8 K/mm3 (4.5-10.0)
[2020-06-22 06:37] LABS: Alanine Aminotransferase 32 U/L (4-50); Albumin Level 3.3 g/dL (3.5-5.1); Alkaline Phosphatase 75 U/L (38-126); Anion Gap 6 mmol/L (8-16); Aspartate Amino Transferase 42 U/L (17-59); Bilirubin,Total 0.8 mg/dL (0.2-1.3); Blood Urea Nitrogen 38 mg/dL (9-20); Calcium 7.8 mg/dL (8.4-10.2); Carbon Dioxide 35 mmol/L (22-30); Chloride 97 mmol/L (98-107); Estimated CRCL calculation 79 ml/min; Estimated Glomerular Filt Rate > 60; Glucose 134 mg/dL (75-110); Potassium 3.8 mmol/L (3.4-5.0); Sodium 138 mmol/L (137-145)
[2020-06-22] MEDS: ZINC SULFATE 220 MG CAPSULE PO (08:39)
[2020-06-22] MEDS: DEXAMETHASONE SOD PHOS INJ 4 MG/ML VIAL 6 MG IV PUSH (08:40)
[2020-06-22] MEDS: ENOXAPARIN 40 MG/0.4 ML SYRINGE SUB-Q (08:40)
[2020-06-22] MEDS: TIMOLOL MALEATE 0.5% OP SOLN 5 ML BOTTLE 1 DROP EACH EYE (08:40)
[2020-06-22] MEDS: ASCORBIC ACID 500 MG TABLET 1000 MG PO (08:40)
[2020-06-22] MEDS: CHOLECALCIFEROL 1,000 UNITS TABLET 2000 UNITS PO (08:40)
[2020-06-22] MEDS: BUDESONIDE RESPULE NEB 0.5 MG/2 ML AMP 1 MG INHALATION ×2 (08:50→21:00)
[2020-06-22] MEDS: ALBUTEROL SULFATE (*SP) AEROSOL 1 PUFF 2 PUFF INHALATION ×3 (08:51→21:01)
--- NOTE | 2020-06-22 10:54 | PM.IMPN ---
Progress Note: A&P Assessment and Plan (1) Glaucoma: Code(s): H40.9 - Unspecified glaucoma Status: Chronic Assessment and Plan: stable continue home medication (2) Hyperlipidemia: Code(s): E78.5 - Hyperlipidemia, unspecified Status: Chronic Assessment and Plan: stable continue home medication (3) Acute respiratory failure with hypoxia: Code(s): J96.01 - Acute respiratory failure with hypoxia Status: Acute Assessment and Plan: multifactorial secondary to pulmonary edema and pneumonia start IV diuresis continue antibiotic pending culture most likely pneumonia secondary to COVID-19 ruled out secondary bacterial infection DC IV antibiotics patient condition currently critical but stable oxygenation give stable between high-flow oxygen and BiPAP critical care eval pulmonology evaluation pt currently DNR (4) Pneumonia due to 2019-nCoV: Code(s): U07.1 - COVID-19; J12.82 - Pneumonia due to coronavirus disease 2018 Status: Acute Assessment and Plan: dexamethasone started on 06/19/2020 remdisever started on 06/19/2020 inhaler treatment vitamin-D vitamin-C zinc (5) NSTEMI (non-ST elevated myocardial infarction): Code(s): I21.4 - Non-ST elevation (NSTEMI) myocardial infarction Status: Acute Assessment and Plan: most likely NSTEMI type 2 secondary to demand ischemia secondary to COVID-19 pneumonia (6) Pulmonary edema: Code(s): J81.1 - Chronic pulmonary edema Status: Acute Assessment and Plan: echo gentle IV diuresis probably cardiogenic Subjective Date/time seen: 06/22/20 10:54 Interval history: patient was admitted to the hospital with shortness of breath and hypoxia was found to have COVID-19 positive had chest x-ray and CT scan showed pneumonia and possible pulmonary edema COVID-19 was done was positive patient was started on dexamethasone and remdisever patient was placed on BiPAP because of severe hypoxia patient also has elevated troponin most likely NSTEMI type 2 secondary to demand ischemia echo was ordered 06/21/2020 patient has been on BiPAP overnight with 100% FiO2 discussed with critical care for evaluation Patient feels weak short of breath patient patient wanted to be DNR of 30 discussed with pulmonology Patient denies fever headache chest pain 06/22/2020 patient still on BiPAP patient want to be DNR is aware and she agreed I am seeing the patient for COVID-19 pneumonia Exam Narrative: Exam Narrative: Alert on BiPAP Chest positive crackles and wheeze Abdomen nontender nondistended CVS S1 + S2 positive Lower extremity edema Objective Data Vital Signs Vital Signs: Vital Signs - 24 hr 06/21/20 11:51 06/21/20 12:00 06/21/20 14:00 Temperature 98.3 F Pulse Rate 57 L 58 L 59 L Respiratory Rate 20 24 H Blood Pressure 134/71 Pulse Oximetry 95 99 06/21/20 14:02 06/21/20 16:00 06/21/20 18:00 Temperature 98 F Pulse Rate 72 61 65 Respiratory Rate 20 24 H Blood Pressure 122/67 Pulse Oximetry 93 91 06/21/20 19:46 06/21/20 20:00 06/21/20 20:48 Temperature 97.3 F L Pulse Rate 59 L 76 Respiratory Rate 24 H 24 H Blood Pressure 130/50 L Pulse Oximetry 95 92 96 06/21/20 23:29 06/21/20 23:47 06/22/20 00:00 Temperature 97.7 F Pulse Rate 58 L 54 L Respiratory Rate 30 H Blood Pressure 114/60 Pulse Oximetry 99 99 06/22/20 03:39 06/22/20 04:00 06/22/20 05:27 Temperature 97.4 F L Pulse Rate 49 L 52 L Respiratory Rate 23 H Blood Pressure 124/45 L Pulse Oximetry 95 99 06/22/20 07:56 06/22/20 08:00 06/22/20 08:51 Temperature 97.6 F Pulse Rate 56 L 53 L 59 L Respiratory Rate 22 H 22 H 24 H Blood Pressure 131/67 Pulse Oximetry 98 98 90 06/22/20 09:03 06/22/20 10:00 Temperature Pulse Rate 58 L 60 Respiratory Rate 24 H Blood Pressure Pulse Oximetry Intake/Output Intake/Output: Intake & Output 0
--- NOTE | 2020-06-22 11:26 | PM.PNPUL ---
Progress Note: A&P Assessment and Plan (1) Pneumonia due to 2019-nCoV: Code(s): U07.1 - COVID-19; J12.82 - Pneumonia due to coronavirus disease 2019 Status: Acute Assessment and Plan: -Continue remdesivir and dexamethasone for a total of 10 days -Continue DVT prophylaxis with Lovenox 40 mg subcu q.12 hours - continue Pulmicort 1 mg nebulized q.12 hours - Ensure t.i.d. ordered for improved nutrition and hydration - Gonzalez catheter can be removed and PTOT to get him up into the chair twice a day would be advantageous (2) Acute respiratory failure with hypoxia: Code(s): J96.01 - Acute respiratory failure with hypoxia Status: Acute Assessment and Plan: continue with combination of high-flow oxygen, non-rebreather and current BiPAP settings to maintain O2 saturations 92-96%. Patient is now a DNR Subjective Date/time seen: 06/22/20 11:26 Interval history: feeling slightly better today but complains of constipation, weakness. He is also not eating or drinking well but when I suggested protein shakes he said he would be in favor of trying goes. He was able to prone position yesterday for a few hours And will try again today. He was on BiPAP at night but is back on a combination of high-flow nasal cannula with 100% non-rebreather mask and appears to be comfortable. Review of Systems Review of Systems: All systems reviewed & are unremarkable except as noted in HPI and below Exam Const: General: cooperative, healthy appearing, comfortable, no acute distress, well developed, alert and awake Orientation/consciousness: oriented to person, oriented to place, oriented to time and patient oriented x3 Limitations: no limitations HENMT: Head: normal to inspection, normocephalic and atraumatic Eyes: General: appearance normal, both eyes and all related structures Neck: Neck: trachea midline and supple Resp: Auscultation: clear to auscultation bilaterally and diminished lung sounds Cardio: Jugular venous distension: no JVD Rate: regular rate Rhythm: regular rhythm Heart sounds: S1 normal heart sound present and S2 normal heart sound present GI: Inspection: normal to inspection Auscultation: normal bowel sounds Skin: General skin exam: normal color and no rashes or lesions noted Neuro: General: oriented to person, oriented to place, oriented to time and patient oriented x3 Cognition (Neuro): normal cognition Speech: normal speech Extrem: General: normal to inspection and no clubbing, cyanosis or edema Psych: Appearance: grossly normal and well kempt Mental Status: mental status grossly normal Objective Data Vital Signs Vital Signs: Vital Signs - 24 hr 06/21/20 11:51 06/21/20 12:00 06/21/20 14:00 Temperature 36.8 C Pulse Rate 57 L 58 L 59 L Respiratory Rate 20 24 H Blood Pressure 134/71 Pulse Oximetry 95 99 06/21/20 14:02 06/21/20 16:00 06/21/20 18:00 Temperature 36.6 C Pulse Rate 72 61 65 Respiratory Rate 20 24 H Blood Pressure 122/67 Pulse Oximetry 93 91 06/21/20 19:46 06/21/20 20:00 06/21/20 20:48 Temperature 36.3 C L Pulse Rate 59 L 76 Respiratory Rate 24 H 24 H Blood Pressure 130/50 L Pulse Oximetry 95 92 96 06/21/20 23:29 06/21/20 23:47 06/22/20 00:00 Temperature 36.5 C Pulse Rate 58 L 54 L Respiratory Rate 30 H Blood Pressure 114/60 Pulse Oximetry 99 99 06/22/20 03:39 06/22/20 04:00 06/22/20 05:27 Temperature 36.3 C L Pulse Rate 49 L 52 L Respiratory Rate 23 H Blood Pressure 124/45 L Pulse Oximetry 95 99 06/22/20 07:56 06/22/20 08:00 06/22/20 08:51 Temperature 36.4 C Pulse Rate 56 L 53 L 59 L Respiratory Rate 22 H 22 H 24 H Blood Pressure 131/67 Pulse Oximetry 98 98 90 06/22/20 09:03 06/22/20 10:00 Temperature Pulse Rate 58 L 60 Respiratory Rate 24 H Blood Pressure Pulse Oximetry Intake/Output Intake/Output: Intake & Output 06/19/20 06/20/20 06/21/20 06/22/20 23:59 23
[2020-06-22] MEDS: polyethylene glycoL 3350 17 GM POWD.PACK PO (11:53)
[2020-06-22] MEDS: ATORVASTATIN 20 MG TABLET PO (11:54)
[2020-06-22] MEDS: REMDESIVIR 100 MG/NS 250 ML 100 MG/250 ML BAG 250 MG IVPB (20:47)
[2020-06-22] MEDS: DOCUSATE SODIUM 100 MG CAPSULE PO (20:47)
[2020-06-23] VITALS (23 sets, daily range): BP systolic 113–131; BP diastolic 48–70; PULSE 57–96; RESP 20–29; TEMP 36.6–37.2; O2SAT 86–99
[2020-06-23] MEDS: ALBUTEROL SULFATE (*SP) AEROSOL 1 PUFF 2 PUFF INHALATION ×4 (02:28→20:03)
[2020-06-23 07:46] LABS: Basophils Percent Auto 0.2 % (0.2-1.2); Eosinophils Percent Auto 0.1 % (0-4.4); Hematocrit 44.1 % (42.0-52.0); Hemoglobin 14.4 g/dL (14.0-18.0); Immature Granulocyte Absolute 0.14 K/mm3 (0.00-0.031); Immature Granulocyte Percent A 0.7 % (0-0.5); Lymphocytes Absolute Auto 1.57 K/mm3 (0.9-3.2); Lymphocytes Percent Auto 7.9 % (18.3-44.2); Mean Corpuscular HGB Conc 32.7 g/dl (32-36); Mean Corpuscular Hemoglobin 29.1 pg (26-34); Mean Corpuscular Volume 89.1 fl (80-100); Mean Platelet Volume 10.1 fl (7.4-10.4); Monocytes Absolute Auto 0.9 K/mm3 (0.1-0.6); Monocytes Percent Auto 4.4 % (2.6-8.5); Neutrophils Absolute Auto 17.2 K/mm3 (1.3-6.7); Neutrophils Percent Auto 86.7 % (45.5-73.1); Platelet Count Result 329 k/mm3 (150-375); Red Blood Count 4.95 M/mm3 (4.6-6.20); Red Cell Distribution Width 13.7 % (11.5-14.5); White Blood Count 19.9 K/mm3 (4.5-10.0)
[2020-06-23] MEDS: BUDESONIDE RESPULE NEB 0.5 MG/2 ML AMP 1 MG INHALATION ×2 (07:47→20:01)
[2020-06-23 08:05] LABS: Alanine Aminotransferase 29 U/L (4-50); Albumin Level 3.2 g/dL (3.5-5.1); Alkaline Phosphatase 75 U/L (38-126); Anion Gap 3 mmol/L (8-16); Aspartate Amino Transferase 45 U/L (17-59); Blood Urea Nitrogen 28 mg/dL (9-20); Calcium 7.9 mg/dL (8.4-10.2); Carbon Dioxide 34 mmol/L (22-30); Chloride 100 mmol/L (98-107); Estimated CRCL calculation 88 ml/min; Estimated Glomerular Filt Rate > 60; Glucose 117 mg/dL (75-110); Potassium 4.3 mmol/L (3.4-5.0); Sodium 137 mmol/L (137-145)
[2020-06-23] MEDS: ASCORBIC ACID 500 MG TABLET 1000 MG PO (08:50)
[2020-06-23] MEDS: ZINC SULFATE 220 MG CAPSULE PO (08:50)
[2020-06-23] MEDS: TIMOLOL MALEATE 0.5% OP SOLN 5 ML BOTTLE 1 DROP EACH EYE (08:51)
[2020-06-23] MEDS: ATORVASTATIN 20 MG TABLET PO (08:51)
[2020-06-23] MEDS: CHOLECALCIFEROL 1,000 UNITS TABLET 2000 UNITS PO (08:51)
[2020-06-23] MEDS: ENOXAPARIN 40 MG/0.4 ML SYRINGE SUB-Q ×2 (08:51→22:12)
[2020-06-23] MEDS: DEXAMETHASONE SOD PHOS INJ 4 MG/ML VIAL 6 MG IV PUSH (08:51)
--- NOTE | 2020-06-23 09:13 | PCOTNOTE ---
Attempted OT evaluation, per RN hold therapy till the afternoon due to patient's increased O2 needs. Will follow and attempt at later time.
--- NOTE | 2020-06-23 12:42 | PM.PNPUL ---
Progress Note: A&P Assessment and Plan (1) Pneumonia due to 2019-nCoV: Code(s): U07.1 - COVID-19; J12.82 - Pneumonia due to coronavirus disease 2018 Status: Acute Assessment and Plan: -Continue remdesivir and dexamethasone for a total of 10 days -Continue DVT prophylaxis with Lovenox 40 mg subcu q.12 hours - continue Pulmicort 1 mg nebulized q.12 hours - Ensure t.i.d. ordered for improved nutrition and hydration - Gonzalez catheter can be removed and PTOT to get him up into the chair twice a day would be advantageous - upinto chair bid as tolerated. (2) Acute respiratory failure with hypoxia: Code(s): J96.01 - Acute respiratory failure with hypoxia Status: Acute Assessment and Plan: continue with combination of high-flow oxygen, non-rebreather and current BiPAP settings to maintain O2 saturations 92-96%. Patient is now a DNR Subjective Date/time seen: 06/23/20 12:42 Interval history: He is feeling slightly better today his oxygenation and have not improved but they are stable. He was not able to prone positioning due to significant discomfort. He is starting to take in more liquids and drink his insurer protein shakes. Review of Systems Review of Systems: All systems reviewed & are unremarkable except as noted in HPI and below Exam Const: General: cooperative, healthy appearing, comfortable, no acute distress, well developed, alert and awake Orientation/consciousness: oriented to person, oriented to place, oriented to time and patient oriented x3 Limitations: no limitations HENMT: Head: normal to inspection, normocephalic and atraumatic Eyes: General: appearance normal, both eyes and all related structures Neck: Neck: trachea midline and supple Resp: Auscultation: clear to auscultation bilaterally and diminished lung sounds Cardio: Jugular venous distension: no JVD Rate: regular rate Rhythm: regular rhythm Heart sounds: S1 normal heart sound present and S2 normal heart sound present GI: Inspection: normal to inspection Auscultation: normal bowel sounds Skin: General skin exam: normal color and no rashes or lesions noted Neuro: General: oriented to person, oriented to place, oriented to time and patient oriented x3 Cognition (Neuro): normal cognition Speech: normal speech Extrem: General: normal to inspection and no clubbing, cyanosis or edema Psych: Appearance: grossly normal and well kempt Mental Status: mental status grossly normal Objective Data Vital Signs Vital Signs: Vital Signs - 24 hr 06/22/20 14:00 06/22/20 16:00 06/22/20 18:00 Temperature 36.4 C L Pulse Rate 68 66 64 Respiratory Rate 24 H Blood Pressure 122/64 Pulse Oximetry 91 06/22/20 20:00 06/22/20 20:49 06/22/20 21:01 Temperature 36.4 C Pulse Rate 63 62 Respiratory Rate 24 H 26 H Blood Pressure 121/50 L Pulse Oximetry 94 91 06/22/20 21:13 06/22/20 21:18 06/22/20 22:00 Temperature Pulse Rate 61 62 94 Respiratory Rate 26 H 22 H Blood Pressure Pulse Oximetry 96 06/22/20 23:53 06/22/20 23:55 06/23/20 00:00 Temperature 36.4 C Pulse Rate 60 64 Respiratory Rate 26 H Blood Pressure 122/63 Pulse Oximetry 100 96 06/23/20 02:00 06/23/20 02:38 06/23/20 03:35 Temperature Pulse Rate 60 61 Respiratory Rate 22 H Blood Pressure Pulse Oximetry 97 96 06/23/20 04:00 06/23/20 06:00 06/23/20 07:55 Temperature 36.6 C Pulse Rate 57 L 60 60 Respiratory Rate 20 24 H Blood Pressure 118/70 Pulse Oximetry 98 96 06/23/20 08:00 06/23/20 08:10 06/23/20 10:00 Temperature 36.6 C Pulse Rate 64 64 69 Respiratory Rate 24 H 24 H Blood Pressure 131/57 L Pulse Oximetry 94 06/23/20 12:00 Temperature 36.6 C Pulse Rate 75 Respiratory Rate 24 H Blood Pressure 113/48 L Pulse Oximetry 95 Intake/Output Intake/Output: Intake & Output 06/20/20 06/21/20 06/22/20 06/23/20 23:59 23:59 23:59 23:59 Intake Total 1030 670
--- NOTE | 2020-06-23 15:52 | PM.IMPN ---
Progress Note: A&P Assessment and Plan (1) Glaucoma: Code(s): H40.9 - Unspecified glaucoma Status: Chronic Assessment and Plan: Continue home medication (2) Hyperlipidemia: Code(s): E78.5 - Hyperlipidemia, unspecified Status: Chronic Assessment and Plan: Continue home medication (3) Acute respiratory failure with hypoxia: Code(s): J96.01 - Acute respiratory failure with hypoxia Status: Acute Assessment and Plan: Multifactorial secondary to pulmonary edema and pneumonia high flow oxygen iv steroids and iv remdesivir pt is currently DNR (4) Pneumonia due to 2019-nCoV: Code(s): U07.1 - COVID-19; J12.82 - Pneumonia due to coronavirus disease 2019 Status: Acute Assessment and Plan: dexamethasone started on 06/19/2020 remdisever started on 06/19/2020 inhaler treatment vitamin-D vitamin-C zinc pt seen by pulmology (5) NSTEMI (non-ST elevated myocardial infarction): Code(s): I21.4 - Non-ST elevation (NSTEMI) myocardial infarction Status: Acute Assessment and Plan: NSTEMI type 2 secondary to demand ischemia secondary to COVID-19 pneumonia (6) Pulmonary edema: Code(s): J81.1 - Chronic pulmonary edema Status: Acute Assessment and Plan: Echo ordered sp diuresis Additional Plan Subjective Date/time seen: 06/23/20 15:52 Interval history: patient was admitted to the hospital with shortness of breath and hypoxia was found to have COVID-19 positive had chest x-ray and CT scan showed pneumonia and possible pulmonary edema COVID-19 was done was positive patient was started on dexamethasone and remdesivir patient was placed on BiPAP because of severe hypoxia patient also has elevated troponin most likely NSTEMI type 2 secondary to demand ischemia 06/23 Pt is still SOB in the room, comfortable on high flow oxygen, continue dexamethasone and remdesivir for 10 days as per pulmonology. Review of Systems Review of Systems: All systems reviewed & are unremarkable except as noted in HPI and below Exam Narrative: Exam Narrative: Alert comfortable on high flow oxygen RRR Chest BL wheezes Abdomen nontender nondistended Lower extremity edema Objective Data Vital Signs Vital Signs: Vital Signs - 24 hr 06/22/20 16:00 06/22/20 18:00 06/22/20 20:00 Temperature 36.4 C L 36.4 C Pulse Rate 66 64 63 Respiratory Rate 24 H 24 H Blood Pressure 122/64 121/50 L Pulse Oximetry 91 94 06/22/20 20:49 06/22/20 21:01 06/22/20 21:13 Temperature Pulse Rate 62 61 Respiratory Rate 26 H 26 H Blood Pressure Pulse Oximetry 91 06/22/20 21:18 06/22/20 22:00 06/22/20 23:53 Temperature Pulse Rate 62 94 Respiratory Rate 22 H Blood Pressure Pulse Oximetry 96 100 06/22/20 23:55 06/23/20 00:00 06/23/20 02:00 Temperature 36.4 C Pulse Rate 60 64 60 Respiratory Rate 26 H Blood Pressure 122/63 Pulse Oximetry 96 06/23/20 02:38 06/23/20 03:35 06/23/20 04:00 Temperature 36.6 C Pulse Rate 61 57 L Respiratory Rate 22 H 20 Blood Pressure 118/70 Pulse Oximetry 97 96 98 06/23/20 06:00 06/23/20 07:55 06/23/20 08:00 Temperature 36.6 C Pulse Rate 60 60 64 Respiratory Rate 24 H 24 H Blood Pressure 131/57 L Pulse Oximetry 96 94 06/23/20 08:10 06/23/20 10:00 06/23/20 12:00 Temperature 36.6 C Pulse Rate 64 69 75 Respiratory Rate 24 H 24 H Blood Pressure 113/48 L Pulse Oximetry 95 06/23/20 14:00 06/23/20 14:56 06/23/20 15:05 Temperature Pulse Rate 69 Respiratory Rate Blood Pressure Pulse Oximetry 98 86 L Intake/Output Intake/Output: Intake & Output 06/20/20 06/21/20 06/22/20 06/23/20 23:59 23:59 23:59 23:59 Intake Total 3621 707 5718 240 Output Total 500 6583 1338 850 Balance 347 -8605 -630 -610 Meds/Results Medications: Active Medications Generic Name Dose Route Start Last Admin Trade Name Freq PRN Reason Sto
[2020-06-23] MEDS: REMDESIVIR 100 MG/NS 250 ML 100 MG/250 ML BAG 250 MG IVPB (22:12)
[2020-06-23] MEDS: DOCUSATE SODIUM 100 MG CAPSULE PO (22:12)
[2020-06-24] VITALS (29 sets, daily range): BP systolic 101–139; BP diastolic 53–62; PULSE 60–77; RESP 18–28; TEMP 35.6–36.6; O2SAT 90–100
[2020-06-24] MEDS: ALBUTEROL SULFATE (*SP) AEROSOL 1 PUFF 2 PUFF INHALATION ×4 (01:01→20:38)
[2020-06-24 05:14] LABS: Basophils Percent Auto 0.1 % (0.2-1.2); Eosinophils Percent Auto 0.1 % (0-4.4); Hematocrit 41.3 % (42.0-52.0); Hemoglobin 13.5 g/dL (14.0-18.0); Immature Granulocyte Absolute 0.13 K/mm3 (0.00-0.031); Immature Granulocyte Percent A 0.7 % (0-0.5); Lymphocytes Absolute Auto 1.37 K/mm3 (0.9-3.2); Lymphocytes Percent Auto 7.9 % (18.3-44.2); Mean Corpuscular HGB Conc 32.7 g/dl (32-36); Mean Corpuscular Hemoglobin 29.1 pg (26-34); Mean Platelet Volume 9.9 fl (7.4-10.4); Monocytes Absolute Auto 0.6 K/mm3 (0.1-0.6); Monocytes Percent Auto 3.6 % (2.6-8.5); Neutrophils Absolute Auto 15.3 K/mm3 (1.3-6.7); Neutrophils Percent Auto 87.6 % (45.5-73.1); Platelet Count Result 257 k/mm3 (150-375); Red Blood Count 4.64 M/mm3 (4.6-6.20); Red Cell Distribution Width 13.9 % (11.5-14.5); White Blood Count 17.4 K/mm3 (4.5-10.0)
[2020-06-24 05:29] LABS: Alanine Aminotransferase 25 U/L (4-50); Albumin Level 2.9 g/dL (3.5-5.1); Alkaline Phosphatase 67 U/L (38-126); Anion Gap 1 mmol/L (8-16); Aspartate Amino Transferase 41 U/L (17-59); Bilirubin,Total 0.8 mg/dL (0.2-1.3); Blood Urea Nitrogen 25 mg/dL (9-20); Calcium 7.8 mg/dL (8.4-10.2); Carbon Dioxide 34 mmol/L (22-30); Chloride 101 mmol/L (98-107); Estimated CRCL calculation 88 ml/min; Estimated Glomerular Filt Rate > 60; Glucose 112 mg/dL (75-110); Potassium 4.1 mmol/L (3.4-5.0); Sodium 136 mmol/L (137-145)
[2020-06-24] MEDS: DEXAMETHASONE SOD PHOS INJ 4 MG/ML VIAL 6 MG IV PUSH (08:34)
[2020-06-24] MEDS: CHOLECALCIFEROL 1,000 UNITS TABLET 2000 UNITS PO (08:34)
[2020-06-24] MEDS: ASCORBIC ACID 500 MG TABLET 1000 MG PO (08:34)
[2020-06-24] MEDS: ATORVASTATIN 20 MG TABLET PO (08:34)
[2020-06-24] MEDS: DOCUSATE SODIUM 100 MG CAPSULE PO (08:35)
[2020-06-24] MEDS: TIMOLOL MALEATE 0.5% OP SOLN 5 ML BOTTLE 1 DROP EACH EYE (08:35)
[2020-06-24] MEDS: ENOXAPARIN 40 MG/0.4 ML SYRINGE SUB-Q ×2 (08:35→21:02)
[2020-06-24] MEDS: ZINC SULFATE 220 MG CAPSULE PO (08:35)
[2020-06-24] MEDS: ACETAMINOPHEN 325 MG TABLET 650 MG PO (08:49)
[2020-06-24] MEDS: BUDESONIDE RESPULE NEB 0.5 MG/2 ML AMP 1 MG INHALATION ×2 (08:53→20:39)
[2020-06-24] MEDS: REMDESIVIR 100 MG/NS 250 ML 100 MG/250 ML BAG 250 MG IVPB (10:29)
--- NOTE | 2020-06-24 10:39 | PM.PNPUL ---
Progress Note: A&P Assessment and Plan (1) Pneumonia due to 2019-nCoV: Code(s): U07.1 - COVID-19; J12.82 - Pneumonia due to coronavirus disease 2018 Status: Acute Assessment and Plan: -Continue remdesivir and dexamethasone for a total of 10 days -Continue DVT prophylaxis with Lovenox 40 mg subcu q.12 hours - continue Pulmicort 1 mg nebulized q.12 hours - Ensure t.i.d. ordered for improved nutrition and hydration - Gonzalez catheter can be removed and PTOT to get him up into the chair twice a day would be advantageous - upinto chair bid as tolerated. (2) Acute respiratory failure with hypoxia: Code(s): J96.01 - Acute respiratory failure with hypoxia Status: Acute Assessment and Plan: Seems to be slowly improving can discontinue non-rebreather face mask and continue high-flow oxygen to maintain O2 saturations at 88% or better. Patient is a DNR Subjective Date/time seen: 06/24/20 10:39 Interval history: He is feeling better and sitting up into the chair today. He no longer appears to need the non-rebreather face mask and is doing well on high-flow oxygen alone at 60 L and 73% with O2 sats of around 90-91%. Appetite is still poor but he is still taking oral liquids and drinking protein shakes 3 times a day. Review of Systems Review of Systems: All systems reviewed & are unremarkable except as noted in HPI and below Exam Const: General: cooperative, healthy appearing, comfortable, no acute distress, well developed, alert and awake Orientation/consciousness: oriented to person, oriented to place, oriented to time and patient oriented x3 Limitations: no limitations HENMT: Head: normal to inspection, normocephalic and atraumatic Eyes: General: appearance normal, both eyes and all related structures Neck: Neck: trachea midline and supple Resp: Auscultation: clear to auscultation bilaterally and diminished lung sounds Cardio: Jugular venous distension: no JVD Rate: regular rate Rhythm: regular rhythm Heart sounds: S1 normal heart sound present and S2 normal heart sound present GI: Inspection: normal to inspection Auscultation: normal bowel sounds Skin: General skin exam: normal color and no rashes or lesions noted Neuro: General: oriented to person, oriented to place, oriented to time and patient oriented x3 Cognition (Neuro): normal cognition Speech: normal speech Extrem: General: normal to inspection and no clubbing, cyanosis or edema Psych: Appearance: grossly normal and well kempt Mental Status: mental status grossly normal Objective Data Vital Signs Vital Signs: Vital Signs - 24 hr 06/23/20 12:00 06/23/20 14:00 06/23/20 14:56 Temperature 36.6 C Pulse Rate 75 69 Respiratory Rate 24 H Blood Pressure 113/48 L Pulse Oximetry 95 98 06/23/20 15:05 06/23/20 15:52 06/23/20 15:57 Temperature 37.2 C Pulse Rate 89 89 Respiratory Rate 22 H 22 H Blood Pressure 126/68 Pulse Oximetry 86 L 98 98 06/23/20 16:00 06/23/20 18:00 06/23/20 20:00 Temperature 36.6 C Pulse Rate 67 74 72 Respiratory Rate 24 H Blood Pressure 115/55 L Pulse Oximetry 91 06/23/20 20:10 06/23/20 20:20 06/23/20 22:00 Temperature Pulse Rate 66 69 60 Respiratory Rate 20 Blood Pressure Pulse Oximetry 99 06/23/20 22:21 06/24/20 00:00 06/24/20 00:56 Temperature 36.3 C L Pulse Rate 61 64 62 Respiratory Rate 29 H 25 H Blood Pressure 123/60 Pulse Oximetry 96 90 96 06/24/20 01:01 06/24/20 01:27 06/24/20 02:00 Temperature Pulse Rate 64 62 60 Respiratory Rate 20 26 H Blood Pressure Pulse Oximetry 91 06/24/20 04:00 06/24/20 04:36 06/24/20 06:00 Temperature 36.6 C Pulse Rate 64 64 74 Respiratory Rate 22 H 26 H Blood Pressure 137/57 L Pulse Oximetry 96 94 06/24/20 08:39 06/24/20 09:04 06/24/20 09:16 Temperature 35.6 C L Pulse Rate 65 77 74 Respiratory Rate 23 H 20 22 H Blood Pressure 101/54 L Pulse Oxime
--- NOTE | 2020-06-24 14:52 | PM.IMPN ---
Progress Note: A&P Assessment and Plan (1) Acute respiratory failure with hypoxia: Code(s): J96.01 - Acute respiratory failure with hypoxia Status: Acute Assessment and Plan: Likely secondary to Covid 19 pneumonia Non re breather has been discontinued. Appreciate Pulmonology notes (2) Pneumonia due to 2019-nCoV: Code(s): U07.1 - COVID-19; J12.82 - Pneumonia due to coronavirus disease 2019 Status: Acute Assessment and Plan: Remdesivir/Dexamethasone Improved. (3) NSTEMI (non-ST elevated myocardial infarction): Code(s): I21.4 - Non-ST elevation (NSTEMI) myocardial infarction Status: Acute Assessment and Plan: Stable Secondary to demand ischemia (4) Glaucoma: Code(s): H40.9 - Unspecified glaucoma Status: Chronic Assessment and Plan: Stable Continue home meds Subjective Date/time seen: 06/24/20 14:52 I feel better. Review of Systems Review of Systems: Narrative: No new issues. States that feels improved. ROS unobtainable: Yes unobtainable due to medical condition Exam Narrative: Exam Narrative: Sitting in chair. Const: General: comfortable, no acute distress, alert, awake, Physically active and ill appearing Nutritional Appearance: thin Orientation/consciousness: patient oriented x3 HENMT: Head: normocephalic Ears: hearing grossly normal bilaterally General nose exam: Normal external nose present Face and sinus: normal facial exam Eyes: General: appearance normal, both eyes and all related structures Pupils: Equal, round and reactive pupils present EOM: EOMs intact bilaterally Neck: Neck: no lymphadenopathy, supple and no JVD Resp: Auscultation: clear to auscultation bilaterally Cardio: Jugular venous distension: no JVD Rate: regular rate Rhythm: regular rhythm GI: GI Palp: Yes Soft to palpation and Yes No hepatosplenomegaly present Skin: Rashes: no rashes Neuro: General: patient oriented x3 and CN's II-XI intact bilaterally Cranial nerves: Yes CN's II-XII intact bilaterally and Yes Equal, round and reactive pupils present Cognition (Neuro): normal cognition Speech: normal speech Motor exam (neuro): 5/5 motor strength present throughout Sensory Exam: normal sensation Extrem: General: no pedal edema Objective Data Vital Signs Vital Signs: Vital Signs - 24 hr 06/23/20 14:56 06/23/20 15:05 06/23/20 15:52 Temperature 98.9 F Pulse Rate 89 Respiratory Rate 22 H Blood Pressure 126/68 Pulse Oximetry 98 86 L 98 06/23/20 15:57 06/23/20 16:00 06/23/20 18:00 Temperature Pulse Rate 89 67 74 Respiratory Rate 22 H Blood Pressure Pulse Oximetry 98 06/23/20 20:00 06/23/20 20:10 06/23/20 20:20 Temperature 97.8 F Pulse Rate 72 66 69 Respiratory Rate 24 H 20 Blood Pressure 115/55 L Pulse Oximetry 91 99 06/23/20 22:00 06/23/20 22:21 06/24/20 00:00 Temperature 97.3 F L Pulse Rate 60 61 64 Respiratory Rate 29 H 25 H Blood Pressure 123/60 Pulse Oximetry 96 90 06/24/20 00:56 06/24/20 01:01 06/24/20 01:27 Temperature Pulse Rate 62 64 62 Respiratory Rate 20 26 H Blood Pressure Pulse Oximetry 96 91 06/24/20 02:00 06/24/20 04:00 06/24/20 04:36 Temperature 97.9 F Pulse Rate 60 64 64 Respiratory Rate 22 H 26 H Blood Pressure 137/57 L Pulse Oximetry 96 94 06/24/20 06:00 06/24/20 08:39 06/24/20 09:04 Temperature 96.1 F L Pulse Rate 74 65 77 Respiratory Rate 23 H 20 Blood Pressure 101/54 L Pulse Oximetry 100 06/24/20 09:16 06/24/20 11:14 06/24/20 12:48 Temperature 97.5 F L Pulse Rate 74 65 Respiratory Rate 22 H 23 H Blood Pressure 108/53 L Pulse Oximetry 97 96 94 Intake/Output Intake/Output: Intake & Output 06/21/20 06/22/20 06/23/20 06/24/20 23:59 23:59 23:59 23:59 Intake Total 670 1270 680 540 Output Total 0670 1650 1150 300 [facility] -[phone] Meds/Results Medications: Active Medications Generic Nam
[2020-06-25] VITALS (26 sets, daily range): BP systolic 111–142; BP diastolic 48–83; PULSE 60–108; RESP 18–28; TEMP 35.6–36.5; O2SAT 91–98
[2020-06-25] MEDS: ALBUTEROL SULFATE (*SP) AEROSOL 1 PUFF 2 PUFF INHALATION ×4 (02:30→21:31)
[2020-06-25 05:30] LABS: Alanine Aminotransferase 23 U/L (4-50); Estimated CRCL calculation 88 ml/min; Estimated Glomerular Filt Rate > 60
[2020-06-25] MEDS: BUDESONIDE RESPULE NEB 0.5 MG/2 ML AMP 1 MG INHALATION ×2 (07:50→21:31)
[2020-06-25 10:01] LABS: Hematocrit 41.3 % (42.0-52.0); Hemoglobin 13.5 g/dL (14.0-18.0); Mean Corpuscular HGB Conc 32.7 g/dl (32-36); Mean Corpuscular Hemoglobin 30.1 pg (26-34); Mean Platelet Volume 9.9 fl (7.4-10.4); Platelet Count Result 261 k/mm3 (150-375); Red Blood Count 4.49 M/mm3 (4.6-6.20); Red Cell Distribution Width 14.1 % (11.5-14.5); White Blood Count 18.1 K/mm3 (4.5-10.0)
[2020-06-25 10:28] LABS: Alanine Aminotransferase 22 U/L (4-50); Albumin Level 2.8 g/dL (3.5-5.1); Alkaline Phosphatase 69 U/L (38-126); Anion Gap 2 mmol/L (8-16); Aspartate Amino Transferase 40 U/L (17-59); Bilirubin,Total 0.9 mg/dL (0.2-1.3); Blood Urea Nitrogen 28 mg/dL (9-20); Calcium 8.1 mg/dL (8.4-10.2); Carbon Dioxide 34 mmol/L (22-30); Chloride 100 mmol/L (98-107); Estimated CRCL calculation 79 ml/min; Estimated Glomerular Filt Rate > 60; Glucose 147 mg/dL (75-110); Potassium 4.5 mmol/L (3.4-5.0); Sodium 136 mmol/L (137-145)
[2020-06-25] MEDS: DEXAMETHASONE SOD PHOS INJ 4 MG/ML VIAL 6 MG IV PUSH (10:43)
[2020-06-25] MEDS: ENOXAPARIN 40 MG/0.4 ML SYRINGE SUB-Q ×2 (10:44→20:15)
[2020-06-25] MEDS: REMDESIVIR 100 MG/NS 250 ML 100 MG/250 ML BAG 250 MG IVPB (10:44)
[2020-06-25] MEDS: ASCORBIC ACID 500 MG TABLET 1000 MG PO (10:44)
[2020-06-25] MEDS: ZINC SULFATE 220 MG CAPSULE PO (10:44)
[2020-06-25] MEDS: ATORVASTATIN 20 MG TABLET PO (10:44)
[2020-06-25] MEDS: CHOLECALCIFEROL 1,000 UNITS TABLET 2000 UNITS PO (10:44)
[2020-06-25] MEDS: TIMOLOL MALEATE 0.5% OP SOLN 5 ML BOTTLE 1 DROP EACH EYE (10:45)
--- NOTE | 2020-06-25 13:12 | PM.PNPUL ---
Progress Note: A&P Assessment and Plan (1) Pneumonia due to 2019-nCoV: Code(s): U07.1 - COVID-19; J12.82 - Pneumonia due to coronavirus disease 2019 Status: Acute Assessment and Plan: -Continue remdesivir and dexamethasone for a total of 10 days -Continue DVT prophylaxis with Lovenox 40 mg subcu q.12 hours - continue Pulmicort 1 mg nebulized q.12 hours - Ensure t.i.d. ordered for improved nutrition and hydration - Gonzalez catheter can be removed and PTOT to get him up into the chair twice a day would be advantageous - upinto chair bid as tolerated. (2) Acute respiratory failure with hypoxia: Code(s): J96.01 - Acute respiratory failure with hypoxia Status: Acute Assessment and Plan: Seems to be slowly improving can discontinue non-rebreather face mask and continue high-flow oxygen to maintain O2 saturations at 88% or better. Patient is a DNR Subjective Date/time seen: 06/25/20 13:12 Interval history: Oxygen demand seem to be slowly improving. He is currently on 50 L and 70% via high-flow. Review of Systems Review of Systems: All systems reviewed & are unremarkable except as noted in HPI and below Exam Const: General: cooperative, healthy appearing, comfortable, no acute distress, well developed, alert and awake Orientation/consciousness: oriented to person, oriented to place, oriented to time and patient oriented x3 Limitations: no limitations HENMT: Head: normal to inspection, normocephalic and atraumatic Eyes: General: appearance normal, both eyes and all related structures Neck: Neck: trachea midline and supple Resp: Auscultation: clear to auscultation bilaterally and diminished lung sounds Cardio: Jugular venous distension: no JVD Rate: regular rate Rhythm: regular rhythm Heart sounds: S1 normal heart sound present and S2 normal heart sound present GI: Inspection: normal to inspection Auscultation: normal bowel sounds Skin: General skin exam: normal color and no rashes or lesions noted Neuro: General: oriented to person, oriented to place, oriented to time and patient oriented x3 Cognition (Neuro): normal cognition Speech: normal speech Extrem: General: normal to inspection and no clubbing, cyanosis or edema Psych: Appearance: grossly normal and well kempt Mental Status: mental status grossly normal Objective Data Vital Signs Vital Signs: Vital Signs - 24 hr 06/24/20 14:00 06/24/20 15:27 06/24/20 16:00 Temperature 35.6 C L Pulse Rate 64 65 Respiratory Rate 23 H Blood Pressure 124/57 L Pulse Oximetry 92 91 06/24/20 18:00 06/24/20 20:00 06/24/20 20:40 Temperature 36.2 C L Pulse Rate 74 68 64 Respiratory Rate 18 20 Blood Pressure 139/60 Pulse Oximetry 93 06/24/20 20:50 06/24/20 21:11 06/24/20 21:14 Temperature Pulse Rate 64 69 69 Respiratory Rate 20 Blood Pressure Pulse Oximetry 91 92 06/24/20 21:35 06/24/20 22:00 06/24/20 23:04 Temperature Pulse Rate 64 64 Respiratory Rate 25 H Blood Pressure Pulse Oximetry 95 93 06/24/20 23:32 06/25/20 00:00 06/25/20 02:00 Temperature 36.6 C Pulse Rate 64 64 60 Respiratory Rate 28 H Blood Pressure 121/62 Pulse Oximetry 91 06/25/20 02:31 06/25/20 02:38 06/25/20 04:00 Temperature 36.0 C L Pulse Rate 61 63 63 Respiratory Rate 23 H 28 H Blood Pressure 111/60 Pulse Oximetry 93 94 06/25/20 06:00 06/25/20 07:50 06/25/20 08:00 Temperature Pulse Rate 64 61 62 Respiratory Rate 27 H 26 H Blood Pressure Pulse Oximetry 98 97 06/25/20 08:40 06/25/20 10:00 06/25/20 11:47 Temperature 36.2 C L Pulse Rate 66 73 108 H Respiratory Rate 22 H 24 H Blood Pressure 122/54 L Pulse Oximetry 91 93 06/25/20 12:00 06/25/20 12:46 Temperature 36.5 C Pulse Rate 81 67 Respiratory Rate 23 H Blood Pressure 124/58 L Pulse Oximetry 94 98 Intake/Output Intake/Output: Intake & Output 06/22/20 06/23/20 06/24/20
--- NOTE | 2020-06-25 15:38 | PM.IMPN ---
Progress Note: A&P Assessment and Plan (1) Acute respiratory failure with hypoxia: Code(s): J96.01 - Acute respiratory failure with hypoxia Status: Acute Assessment and Plan: Currently on Airvo/HFNC Improved Appreciate Pulmonology note. (2) Pneumonia due to 2019-nCoV: Code(s): U07.1 - COVID-19; J12.82 - Pneumonia due to coronavirus disease 2019 Status: Acute Assessment and Plan: On Remdesivir and Dexamethasone Improved (3) Pulmonary edema: Code(s): J81.1 - Chronic pulmonary edema Status: Acute Assessment and Plan: Resolved (4) NSTEMI (non-ST elevated myocardial infarction): Code(s): I21.4 - Non-ST elevation (NSTEMI) myocardial infarction Status: Acute Assessment and Plan: Stable Likely secondary to demand ischemia. Subjective Date/time seen: 06/25/20 15:38 Patient states that he is feeling better. No new issues overnight. Review of Systems Review of Systems: Narrative: No new issues overnight. ROS unobtainable: Yes unobtainable due to medical condition and other Exam Narrative: Exam Narrative: Lying in bed. Const: General: comfortable, no acute distress, alert, awake, Physically active, ill appearing and other (Airvo/HFNC) Nutritional Appearance: average body habitus Orientation/consciousness: patient oriented x3 HENMT: Head: normocephalic Ears: hearing grossly normal bilaterally General nose exam: Normal external nose present Face and sinus: normal facial exam Eyes: General: appearance normal, both eyes and all related structures Pupils: Equal, round and reactive pupils present EOM: EOMs intact bilaterally Neck: Neck: normal visual inspection, no lymphadenopathy, supple and no JVD Lymphatic: no lymphadenopathy noted Resp: Auscultation: clear to auscultation bilaterally and diminished lung sounds Cardio: Jugular venous distension: no JVD Rate: regular rate Rhythm: regular rhythm GI: GI Palp: Yes Soft to palpation and Yes No hepatosplenomegaly present Skin: Rashes: no rashes Neuro: General: patient oriented x3 and CN's II-XI intact bilaterally Cranial nerves: Yes CN's II-XII intact bilaterally and Yes Equal, round and reactive pupils present Cognition (Neuro): normal cognition Speech: normal speech Motor exam (neuro): 5/5 motor strength present throughout Extrem: General: normal to inspection and no pedal edema Objective Data Vital Signs Vital Signs: Vital Signs - 24 hr 06/24/20 16:00 06/24/20 18:00 06/24/20 20:00 Temperature 96.0 F L 97.1 F L Pulse Rate 65 74 68 Respiratory Rate 23 H 18 Blood Pressure 124/57 L 139/60 Pulse Oximetry 91 93 06/24/20 20:40 06/24/20 20:50 06/24/20 21:11 Temperature Pulse Rate 64 64 69 Respiratory Rate 20 20 Blood Pressure Pulse Oximetry 91 06/24/20 21:14 06/24/20 21:35 06/24/20 22:00 Temperature Pulse Rate 69 64 64 Respiratory Rate 25 H Blood Pressure Pulse Oximetry 92 95 06/24/20 23:04 06/24/20 23:32 06/25/20 00:00 Temperature 97.8 F Pulse Rate 64 64 Respiratory Rate 28 H Blood Pressure 121/62 Pulse Oximetry 93 91 06/25/20 02:00 06/25/20 02:31 06/25/20 02:38 Temperature Pulse Rate 60 61 63 Respiratory Rate 23 H Blood Pressure Pulse Oximetry 93 06/25/20 04:00 06/25/20 06:00 06/25/20 07:50 Temperature 96.8 F L Pulse Rate 63 64 61 Respiratory Rate 28 H 27 H Blood Pressure 111/60 Pulse Oximetry 94 98 06/25/20 08:00 06/25/20 08:40 06/25/20 10:00 Temperature 97.2 F L Pulse Rate 62 66 73 Respiratory Rate 26 H 22 H Blood Pressure 122/54 L Pulse Oximetry 97 91 06/25/20 11:47 06/25/20 12:00 06/25/20 12:46 Temperature 97.7 F Pulse Rate 108 H 81 67 Respiratory Rate 24 H 23 H Blood Pressure 124/58 L Pulse Oximetry 93 94 98 Intake/Output Intake/Output: Intake & Output 06/22/20 06/23/20 06/24/20 06/25/20 23:59 23:59 23:59 23:59 Intake Total 4860 083 7873 640 Output To
[2020-06-25] MEDS: SODIUM CHLORIDE 0.9% IV 250 ML 30 ML IV CONT (18:45)
[2020-06-25] MEDS: TUBING, BLOOD PLUM PUMP TUBING 1 EACH XX (18:45)
[2020-06-26] VITALS (20 sets, daily range): BP systolic 124–156; BP diastolic 51–63; PULSE 56–78; RESP 12–33; TEMP 35.8–36.6; O2SAT 88–97; BMI 27.6
[2020-06-26] MEDS: ALBUTEROL SULFATE (*SP) AEROSOL 1 PUFF 2 PUFF INHALATION ×6 (03:25→20:15)
[2020-06-26 05:43] LABS: Alanine Aminotransferase 21 U/L (4-50); Estimated CRCL calculation 99 ml/min; Estimated Glomerular Filt Rate > 60
[2020-06-26] MEDS: ASCORBIC ACID 500 MG TABLET 1000 MG PO (08:35)
[2020-06-26] MEDS: CHOLECALCIFEROL 1,000 UNITS TABLET 2000 UNITS PO (08:36)
[2020-06-26] MEDS: ZINC SULFATE 220 MG CAPSULE PO (08:36)
[2020-06-26] MEDS: DEXAMETHASONE SOD PHOS INJ 4 MG/ML VIAL 6 MG IV PUSH (08:36)
[2020-06-26] MEDS: REMDESIVIR 100 MG/NS 250 ML 100 MG/250 ML BAG 250 MG IVPB (08:36)
[2020-06-26] MEDS: ATORVASTATIN 20 MG TABLET PO (08:36)
[2020-06-26] MEDS: TIMOLOL MALEATE 0.5% OP SOLN 5 ML BOTTLE 1 DROP EACH EYE (08:36)
[2020-06-26] MEDS: ENOXAPARIN 40 MG/0.4 ML SYRINGE SUB-Q ×2 (08:36→22:22)
[2020-06-26] MEDS: BUDESONIDE RESPULE NEB 0.5 MG/2 ML AMP 1 MG INHALATION ×2 (08:44→20:16)
--- NOTE | 2020-06-26 10:51 | PM.PNPUL ---
Progress Note: A&P Assessment and Plan (1) Pneumonia due to 2019-nCoV: Code(s): U07.1 - COVID-19; J12.82 - Pneumonia due to coronavirus disease 2018 Status: Acute Assessment and Plan: -Continue remdesivir and dexamethasone for a total of 10 days -Continue DVT prophylaxis with Lovenox 40 mg subcu q.12 hours - continue Pulmicort 1 mg nebulized q.12 hours - Ensure t.i.d. ordered for improved nutrition and hydration - Gonzalez catheter can be removed and PTOT to get him up into the chair twice a day would be advantageous - upinto chair bid as tolerated. (2) Acute respiratory failure with hypoxia: Code(s): J96.01 - Acute respiratory failure with hypoxia Status: Acute Assessment and Plan: Seems to be slowly improving can discontinue non-rebreather face mask and continue high-flow oxygen to maintain O2 saturations at 88% or better. Patient is a DNR Subjective Date/time seen: 06/26/20 10:51 Interval history: The patient continues to feel weak but his oxygenation has not deteriorated. He is currently on 50 L and 90% oxygen via high flow. He appears to be a bit dehydrated despite drinking oral fluids to the best of his ability. I will start him on some IV fluids today for a couple of days. Review of Systems Review of Systems: All systems reviewed & are unremarkable except as noted in HPI and below Exam Const: General: cooperative, healthy appearing, comfortable, no acute distress, well developed, alert and awake Orientation/consciousness: oriented to person, oriented to place, oriented to time and patient oriented x3 Limitations: no limitations HENMT: Head: normal to inspection, normocephalic and atraumatic Eyes: General: appearance normal, both eyes and all related structures Neck: Neck: trachea midline and supple Resp: Auscultation: clear to auscultation bilaterally and diminished lung sounds Cardio: Jugular venous distension: no JVD Rate: regular rate Rhythm: regular rhythm Heart sounds: S1 normal heart sound present and S2 normal heart sound present GI: Inspection: normal to inspection Auscultation: normal bowel sounds Skin: General skin exam: normal color and no rashes or lesions noted Neuro: General: oriented to person, oriented to place, oriented to time and patient oriented x3 Cognition (Neuro): normal cognition Speech: normal speech Extrem: General: normal to inspection and no clubbing, cyanosis or edema Psych: Appearance: grossly normal and well kempt Mental Status: mental status grossly normal Objective Data Vital Signs Vital Signs: Vital Signs - 24 hr 06/25/20 11:47 06/25/20 12:00 06/25/20 12:46 Temperature 36.5 C Pulse Rate 108 H 81 67 Respiratory Rate 24 H 23 H Blood Pressure 124/58 L Pulse Oximetry 93 94 98 06/25/20 14:00 06/25/20 16:00 06/25/20 17:24 Temperature 36.3 C L Pulse Rate 67 65 67 Respiratory Rate 24 H Blood Pressure 120/48 L Pulse Oximetry 94 97 06/25/20 18:00 06/25/20 18:43 06/25/20 18:59 Temperature 35.6 C L 35.7 C L Pulse Rate 69 74 66 Respiratory Rate 20 20 Blood Pressure 136/83 142/53 H Pulse Oximetry 92 96 06/25/20 20:00 06/25/20 20:30 06/25/20 21:32 Temperature 35.7 C L 36.5 C Pulse Rate 65 66 62 Respiratory Rate 18 20 24 H Blood Pressure 131/53 L 123/65 Pulse Oximetry 94 95 06/25/20 21:56 06/25/20 21:57 06/25/20 22:00 Temperature Pulse Rate 64 63 62 Respiratory Rate 28 H 28 H Blood Pressure Pulse Oximetry 92 06/25/20 23:50 06/26/20 00:00 06/26/20 02:00 Temperature 35.8 C L Pulse Rate 62 60 62 Respiratory Rate 28 H 20 Blood Pressure 127/54 L Pulse Oximetry 93 88 L 06/26/20 03:25 06/26/20 03:33 06/26/20 03:47 Temperature Pulse Rate 59 L 59 L Respiratory Rate 33 H Blood Pressure Pulse Oximetry 95 96 06/26/20 04:00 06/26/20 08:00 06/26/20 08:45 Temperature 36.2 C L 35.9 C L Pulse Rate 56 L 70 60 Respiratory Rate 24 H 26 H 26 H
[2020-06-26] MEDS: LACTATED RINGERS 1,000 ML 75 ML IV CONT ×2 (11:11→22:27)
--- NOTE | 2020-06-26 14:14 | PM.IMPN ---
Progress Note: A&P Assessment and Plan (1) Acute respiratory failure with hypoxia: Code(s): J96.01 - Acute respiratory failure with hypoxia Status: Acute Assessment and Plan: Improved but still high FiO2 needs Appreciate Pulmonology note (2) Pneumonia due to 2019-nCoV: Code(s): U07.1 - COVID-19; J12.82 - Pneumonia due to coronavirus disease 2019 Status: Acute Assessment and Plan: Continue Remdesivir + Dexamethasone (3) NSTEMI (non-ST elevated myocardial infarction): Code(s): I21.4 - Non-ST elevation (NSTEMI) myocardial infarction Status: Acute Assessment and Plan: Stable likely secondary to demand ischemia. Continue to monitor. (4) Pulmonary edema: Code(s): J81.1 - Chronic pulmonary edema Status: Acute Assessment and Plan: Resolved Continue to monitor Subjective Date/time seen: 06/26/20 14:14 Patient states that he feels better. Review of Systems Review of Systems: Narrative: No new issues. ROS unobtainable: Yes unobtainable due to medical condition Exam Narrative: Exam Narrative: Lying in bed Const: General: comfortable, no acute distress, alert, awake, Physically active and ill appearing Nutritional Appearance: average body habitus Orientation/consciousness: patient oriented x3 HENMT: Head: normal to inspection and normocephalic Ears: hearing grossly normal bilaterally General nose exam: Normal external nose present Face and sinus: normal facial exam Eyes: General: appearance normal, both eyes and all related structures Pupils: Equal, round and reactive pupils present EOM: EOMs intact bilaterally Neck: Neck: no lymphadenopathy, supple and no JVD Resp: Auscultation: clear to auscultation bilaterally and diminished lung sounds Cardio: Rate: regular rate Rhythm: regular rhythm GI: GI Palp: Yes Soft to palpation and Yes No hepatosplenomegaly present Skin: Rashes: no rashes Neuro: General: patient oriented x3 and CN's II-XI intact bilaterally Cranial nerves: Yes CN's II-XII intact bilaterally and Yes Equal, round and reactive pupils present Cognition (Neuro): normal cognition Speech: normal speech Motor exam (neuro): 5/5 motor strength present throughout Extrem: General: no pedal edema Objective Data Vital Signs Vital Signs: Vital Signs - 24 hr 06/25/20 16:00 06/25/20 17:24 06/25/20 18:00 Temperature 97.4 F L Pulse Rate 65 67 69 Respiratory Rate 24 H Blood Pressure 120/48 L Pulse Oximetry 94 97 06/25/20 18:43 06/25/20 18:59 06/25/20 20:00 Temperature 96.1 F L 96.2 F L 96.3 F L Pulse Rate 74 66 65 Respiratory Rate 20 20 18 Blood Pressure 136/83 142/53 H 131/53 L Pulse Oximetry 92 96 94 06/25/20 20:30 06/25/20 21:32 06/25/20 21:56 Temperature 97.7 F Pulse Rate 66 62 64 Respiratory Rate 20 24 H 28 H Blood Pressure 123/65 Pulse Oximetry 95 06/25/20 21:57 06/25/20 22:00 06/25/20 23:50 Temperature Pulse Rate 63 62 62 Respiratory Rate 28 H 28 H Blood Pressure Pulse Oximetry 92 93 06/26/20 00:00 06/26/20 02:00 06/26/20 03:25 Temperature 96.5 F L Pulse Rate 60 62 59 L Respiratory Rate 20 Blood Pressure 127/54 L Pulse Oximetry 88 L 06/26/20 03:33 06/26/20 03:47 06/26/20 04:00 Temperature 97.1 F L Pulse Rate 59 L 56 L Respiratory Rate 33 H 24 H Blood Pressure 124/53 L Pulse Oximetry 95 96 96 06/26/20 08:00 06/26/20 08:45 06/26/20 08:53 Temperature 96.7 F L Pulse Rate 70 60 62 Respiratory Rate 26 H 26 H 26 H Blood Pressure 125/55 L Pulse Oximetry 97 06/26/20 08:54 06/26/20 10:00 06/26/20 12:00 Temperature 97.2 F L Pulse Rate 64 62 Respiratory Rate 12 Blood Pressure 139/59 L Pulse Oximetry 93 96 Intake/Output Intake/Output: Intake & Output 06/23/20 06/24/20 06/25/20 06/26/20 23:59 23:59 23:59 23:59 Intake Total 680 1770 1268 1080 Output Total 1150 1650 1450 100 Balance -470 120 -182 980 Meds/Results Medi
[2020-06-27] VITALS (19 sets, daily range): BP systolic 130–149; BP diastolic 50–97; PULSE 64–157; RESP 18–36; TEMP 36.1–36.6; O2SAT 86–94
[2020-06-27] MEDS: ALBUTEROL SULFATE (*SP) AEROSOL 1 PUFF 2 PUFF INHALATION ×3 (02:00→14:48)
[2020-06-27 05:26] LABS: Alanine Aminotransferase 23 U/L (4-50); Estimated CRCL calculation 114 ml/min; Estimated Glomerular Filt Rate > 60
[2020-06-27] MEDS: BUDESONIDE RESPULE NEB 0.5 MG/2 ML AMP 1 MG INHALATION ×2 (08:12→20:27)
[2020-06-27] MEDS: REMDESIVIR 100 MG/NS 250 ML 100 MG/250 ML BAG 250 MG IVPB (10:21)
[2020-06-27] MEDS: ENOXAPARIN 40 MG/0.4 ML SYRINGE SUB-Q ×2 (10:21→20:26)
[2020-06-27] MEDS: DEXAMETHASONE SOD PHOS INJ 4 MG/ML VIAL 6 MG IV PUSH (10:21)
[2020-06-27] MEDS: TIMOLOL MALEATE 0.5% OP SOLN 5 ML BOTTLE 1 DROP EACH EYE (10:21)
[2020-06-27 10:48] LABS: Basophils Percent Auto 0.1 % (0.2-1.2); Eosinophils Percent Auto 0.1 % (0-4.4); Hematocrit 40.1 % (42.0-52.0); Hemoglobin 13.1 g/dL (14.0-18.0); Immature Granulocyte Absolute 0.13 K/mm3 (0.00-0.031); Immature Granulocyte Percent A 0.7 % (0-0.5); Lymphocytes Absolute Auto 1.12 K/mm3 (0.9-3.2); Lymphocytes Percent Auto 5.8 % (18.3-44.2); Mean Corpuscular HGB Conc 32.7 g/dl (32-36); Mean Corpuscular Hemoglobin 29.8 pg (26-34); Mean Corpuscular Volume 91.3 fl (80-100); Mean Platelet Volume 9.9 fl (7.4-10.4); Monocytes Absolute Auto 1.1 K/mm3 (0.1-0.6); Monocytes Percent Auto 5.6 % (2.6-8.5); Neutrophils Percent Auto 87.7 % (45.5-73.1); Platelet Count Result 156 k/mm3 (150-375); Red Blood Count 4.39 M/mm3 (4.6-6.20); Red Cell Distribution Width 14.1 % (11.5-14.5); White Blood Count 19.4 K/mm3 (4.5-10.0)
[2020-06-27 11:01] LABS: Alanine Aminotransferase 22 U/L (4-50); Albumin Level 2.6 g/dL (3.5-5.1); Alkaline Phosphatase 111 U/L (38-126); Anion Gap 6 mmol/L (8-16); Aspartate Amino Transferase 43 U/L (17-59); Bilirubin,Total 0.9 mg/dL (0.2-1.3); Blood Urea Nitrogen 20 mg/dL (9-20); Calcium 7.9 mg/dL (8.4-10.2); Carbon Dioxide 31 mmol/L (22-30); Chloride 99 mmol/L (98-107); Estimated CRCL calculation 88 ml/min; Estimated Glomerular Filt Rate > 60; Glucose 102 mg/dL (75-110); Potassium 4.8 mmol/L (3.4-5.0); Sodium 136 mmol/L (137-145)
[2020-06-27] MEDS: LIDOCAINE HCL 1% PF INJ 5 ML VIAL INFILTRATE (12:15)
--- NOTE | 2020-06-27 13:03 | PM.PNPUL ---
Progress Note: A&P Assessment and Plan (1) Pneumonia due to 2019-nCoV: Code(s): U07.1 - COVID-19; J12.82 - Pneumonia due to coronavirus disease 2018 Status: Acute Assessment and Plan: -Continue remdesivir and dexamethasone for a total of 10 days -Continue DVT prophylaxis with Lovenox 40 mg subcu q.12 hours - continue Pulmicort 1 mg nebulized q.12 hours - Ensure t.i.d. ordered for improved nutrition and hydration - Gonzalez catheter can be removed and PTOT to get him up into the chair twice a day would be advantageous - upinto chair bid as tolerated. (2) Acute respiratory failure with hypoxia: Code(s): J96.01 - Acute respiratory failure with hypoxia Status: Acute Assessment and Plan: Seems to have worsened today. We had to start an IV or CPAP therapy and he may require intubation if he continues to get worse. His code status has been changed to full code with the caveats being that he does not want to be prolonged on the ventilator unnecessarily if he is not getting better or improving according to the doctor's discretion. I spoke to his family doctor today by phone and updated her on his condition I also spoke to his Yessy and updated her on his condition. Subjective Date/time seen: 06/27/20 13:03 Interval history: He appears to have declined with worsening hypoxia today. He does not appear to be in any respiratory distress but is clearly requiring more oxygen. Chest x-ray showed no significant change in bilateral diffuse alveolar and interstitial infiltrates consistent with COVID-19 pneumonia. He has had no fevers and nothing to suspect a superimposed bacterial infection. He has been anticoagulated with Lovenox 40 mg subcu q.12 hours since admission. And has no signs or symptoms of DVT or PE. I switched him from high-flow nasal cannula to CPAP 10 cm of water pressure with 80% FiO2. He seemed to be tolerating that but was a little anxious at 1st. Also of note he has decided to change his code status from DNR to full code and he tells me that he does not want to be prolonged on the ventilator should he not improve. I also spoke to his primary care physician Dr. Olivia Joshi as requested by her and updated her on his condition. Review of Systems Review of Systems: All systems reviewed & are unremarkable except as noted in HPI and below Exam Const: General: cooperative, no acute distress, well developed, alert, awake and Physically active Nutritional Appearance: average body habitus Orientation/consciousness: oriented to person, oriented to place, oriented to time and patient oriented x3 Limitations: no limitations HENMT: Head: normal to inspection, normocephalic and atraumatic Eyes: General: appearance normal, both eyes and all related structures Neck: Neck: normal visual inspection, trachea midline and supple Resp: Auscultation: crackles and diminished lung sounds Cardio: Jugular venous distension: no JVD Rate: regular rate Rhythm: regular rhythm Heart sounds: S1 normal heart sound present, S2 normal heart sound present and Murmur heart sound present GI: Inspection: normal to inspection Auscultation: normal bowel sounds Skin: General skin exam: normal color and no rashes or lesions noted Neuro: General: oriented to person, oriented to place, oriented to time and patient oriented x3 Cognition (Neuro): normal cognition Speech: normal speech Extrem: General: no clubbing, cyanosis or edema Psych: Appearance: grossly normal and well kempt Mental Status: mental status grossly normal Objective Data Vital Signs Vital Signs: Vital Signs - 24 hr 06/26/20 14:00 06/26/20 15:06 06/26/20 16:00 Temperature 36.6 C Pulse Rate 62 65 Respiratory Rate 20 Blood Pressure 130/63 Pulse Oximetry 90 90 06/26/20 18:00 06/26/20 20:00 06/26/20 20:16 Temperature 36.3 C L Pulse Rate 70 65 63 Respiratory Rate 22 H 18 Blood Pressure 156/51 H Pulse Oximetry 93 93
--- NOTE | 2020-06-27 14:32 | PM.IMPN ---
Progress Note: A&P Assessment and Plan (1) Acute respiratory failure with hypoxia: Code(s): J96.01 - Acute respiratory failure with hypoxia Status: Acute Assessment and Plan: On Airvo/HFNC low saturation on high FiO2 Worse Repeat chest xr reviewed Had discussion about possibly going on life support patient states that yes as long as is not kept alive on artificial means Appreciate Pulmonology note (2) Pneumonia due to 2019-nCoV: Code(s): U07.1 - COVID-19; J12.82 - Pneumonia due to coronavirus disease 2019 Status: Acute Assessment and Plan: On Remdesivir and Dexamethasone Will add Cefepime for bacterial coverage as patient has been in the hospital for several days. (3) NSTEMI (non-ST elevated myocardial infarction): Code(s): I21.4 - Non-ST elevation (NSTEMI) myocardial infarction Status: Acute Assessment and Plan: Likely secondary to demand ischemia Appears stable No signs of worsening Chest pain free. Subjective Date/time seen: 06/27/20 14:32 I feel fine Review of Systems Review of Systems: ROS unobtainable: Yes unobtainable due to medical condition Exam Narrative: Exam Narrative: Lying in bed. Const: General: cooperative, alert, awake, Physically active and ill appearing Nutritional Appearance: average body habitus Orientation/consciousness: patient oriented x3 HENMT: Head: normal to inspection and normocephalic Ears: hearing grossly normal bilaterally General nose exam: Normal external nose present Face and sinus: normal facial exam Eyes: General: appearance normal, both eyes and all related structures Pupils: Equal, round and reactive pupils present EOM: EOMs intact bilaterally Neck: Neck: no lymphadenopathy, supple and no JVD Resp: Effort & Inspection: respiratory distress (On airvo/HFNC) Auscultation: diminished lung sounds Cardio: Jugular venous distension: no JVD Rate: regular rate Rhythm: regular rhythm GI: GI Palp: Yes Soft to palpation and Yes No hepatosplenomegaly present Skin: Rashes: no rashes Wounds: no wounds Neuro: General: patient oriented x3 and CN's II-XI intact bilaterally Cranial nerves: Yes CN's II-XII intact bilaterally and Yes Equal, round and reactive pupils present Cognition (Neuro): normal cognition Speech: normal speech Motor exam (neuro): 5/5 motor strength present throughout Extrem: General: no pedal edema Objective Data Vital Signs Vital Signs: Vital Signs - 24 hr 06/26/20 15:06 06/26/20 16:00 06/26/20 18:00 Temperature 98 F Pulse Rate 65 70 Respiratory Rate 20 Blood Pressure 130/63 Pulse Oximetry 90 90 06/26/20 20:00 06/26/20 20:16 06/26/20 20:43 Temperature 97.3 F L Pulse Rate 65 63 78 Respiratory Rate 22 H 18 18 Blood Pressure 156/51 H Pulse Oximetry 93 93 06/26/20 22:00 06/27/20 00:00 06/27/20 02:00 Temperature 97.0 F L Pulse Rate 78 66 68 Respiratory Rate 26 H Blood Pressure 149/50 H Pulse Oximetry 88 L 06/27/20 04:00 06/27/20 06:00 06/27/20 08:00 Temperature 97.0 F L 97 F L Pulse Rate 66 70 81 Respiratory Rate 18 26 H Blood Pressure 134/52 L 144/55 H Pulse Oximetry 88 L 88 L 06/27/20 08:17 06/27/20 08:30 06/27/20 11:02 Temperature Pulse Rate 72 73 69 Respiratory Rate 22 H 26 H 31 H Blood Pressure Pulse Oximetry 86 L 94 06/27/20 12:00 Temperature 97.6 F Pulse Rate 72 Respiratory Rate 12 Blood Pressure 130/63 Pulse Oximetry 93 Intake/Output Intake/Output: Intake & Output 06/24/20 06/25/20 06/26/20 06/27/20 23:59 23:59 23:59 23:59 Intake Total 1770 1268 2880 270 Output Total 1650 1450 700 350 Balance 120 -182 2180 -80 Meds/Results Medications: Active Medications Generic Name Dose Route Start Last Admin Trade Name Freq PRN Reason Stop Dose Admin Acetaminophen 650 mg 06/24/20 08:26 06/24/20 08:49 Acetaminophen 325 Mg Tablet PO 650 mg Q6H PRN Administration Mild Pain (1-3) or Fever Albut
[2020-06-27 14:47] LABS: Base Excess ABG 2.8 mEq/l (+/-2.0); Carboxyhemoglobin 0.3 % THb (0-2.0); Fractional Inspired Oxygen 100 %; HCO3 ABG 25.6 mEq/l (22.0-26.0); Methemoglobin ABG 0.3 %THb (0-1.5); Oxygen Content ABG 17.1 %vol (16.0-22.0); Oxygen Saturation ABG 91.3 % (95.0-100.0); Oxyhemoglobin 88.8 % THb (90.0-100.0); PO2 FiO2 Ratio Arterial Blood 0.55 %; Reduced Hemoglobin 10.6 %THb (0-5.0); Total Hemoglobin 13.7 g/dL (12.0-18.0); pH ABG 7.495 (7.350-7.450)
[2020-06-27 14:49] LABS: Device HIGH FLOW THERAPY; Modified Allen's Test Pass; Site Drawn RIGHT RADIAL
[2020-06-27] MEDS: LACTATED RINGERS 1,000 ML 75 ML IV CONT (16:07)
[2020-06-27] MEDS: CENTRAL LINE FLUSH 10 ML IV PUSH ×2 (16:08→20:26)
--- NOTE | 2020-06-27 20:19 | ECG_ITS ---
Measurements Intervals [place] Rate: 164 P: CT: 0 QRS: 30 QRSD: 77 T: 0 QT: 210 QTc: 347 Interpretive Statements ATRIAL FIBRILLATION WITH RAPID VENTRICULAR RESPONSE VENTRICULAR PREMATURE COMPLEX ST-T WAVE ABNORMALITY IN ANTEROLATERAL LEADS- CONSIDER ISCHEMIA BASELINE WANDER- I, II, AVR, AVF, V3-V6 ABNORMAL ECG Electronically Signed On 06-28-2020 7:54:07 [employer] HE[employer] TEACHER by Simone Fields D.O.
[2020-06-27] MEDS: dilTIAZem HCl INJ 25 MG/5 ML VIAL 10 MG IV PUSH (20:25)
--- NOTE | 2020-06-27 21:07 | ECG_ITS ---
Measurements Intervals [place] Rate: 74 P: 57 ME: 132 QRS: 20 QRSD: 80 T: 27 QT: 392 QTc: 437 Interpretive Statements SINUS RHYTHM EARLY PRECORDIAL R/S TRANSITION BORDERLINE ECG Electronically Signed On 06-28-2020 7:59:10 [employer]TONHO[employer] TACKER by Simone Fields D.O.
[2020-06-28] VITALS (24 sets, daily range): BP systolic 124–149; BP diastolic 57–92; PULSE 65–99; RESP 18–40; TEMP 36.1–36.5; O2SAT 85–95
[2020-06-28] MEDS: LACTATED RINGERS 1,000 ML 75 ML IV CONT (05:43)
[2020-06-28] MEDS: BUDESONIDE RESPULE NEB 0.5 MG/2 ML AMP 1 MG INHALATION ×2 (08:45→19:50)
[2020-06-28 09:21] LABS: Basophils Percent Auto 0.1 % (0.2-1.2); Hematocrit 43.9 % (42.0-52.0); Hemoglobin 14.1 g/dL (14.0-18.0); Immature Granulocyte Absolute 0.16 K/mm3 (0.00-0.031); Immature Granulocyte Percent A 0.7 % (0-0.5); Lymphocytes Absolute Auto 1.25 K/mm3 (0.9-3.2); Lymphocytes Percent Auto 5.3 % (18.3-44.2); Mean Corpuscular HGB Conc 32.1 g/dl (32-36); Mean Corpuscular Hemoglobin 29.6 pg (26-34); Mean Corpuscular Volume 92.2 fl (80-100); Mean Platelet Volume 10.1 fl (7.4-10.4); Monocytes Absolute Auto 1.4 K/mm3 (0.1-0.6); Monocytes Percent Auto 5.8 % (2.6-8.5); Neutrophils Absolute Auto 20.9 K/mm3 (1.3-6.7); Neutrophils Percent Auto 88.1 % (45.5-73.1); Platelet Count Result 151 k/mm3 (150-375); Red Blood Count 4.76 M/mm3 (4.6-6.20); White Blood Count 23.7 K/mm3 (4.5-10.0)
[2020-06-28 09:26] LABS: Alanine Aminotransferase 26 U/L (4-50); Estimated CRCL calculation 99 ml/min; Estimated Glomerular Filt Rate > 60
[2020-06-28 09:27] LABS: Anion Gap 3 mmol/L (8-16); Blood Urea Nitrogen 21 mg/dL (9-20); Calcium 8.2 mg/dL (8.4-10.2); Carbon Dioxide 32 mmol/L (22-30); Chloride 102 mmol/L (98-107); Estimated CRCL calculation 99 ml/min; Estimated Glomerular Filt Rate > 60; Glucose 111 mg/dL (75-110); Potassium 4.1 mmol/L (3.4-5.0); Sodium 137 mmol/L (137-145)
[2020-06-28] MEDS: DEXAMETHASONE SOD PHOS INJ 4 MG/ML VIAL 6 MG IV PUSH (10:05)
[2020-06-28] MEDS: ENOXAPARIN 40 MG/0.4 ML SYRINGE SUB-Q ×2 (10:06→19:56)
[2020-06-28] MEDS: ATORVASTATIN 20 MG TABLET PO (10:07)
[2020-06-28] MEDS: ASCORBIC ACID 500 MG TABLET 1000 MG PO (10:07)
[2020-06-28] MEDS: TIMOLOL MALEATE 0.5% OP SOLN 5 ML BOTTLE 1 DROP EACH EYE (10:07)
[2020-06-28] MEDS: ZINC SULFATE 220 MG CAPSULE PO (10:08)
[2020-06-28] MEDS: CHOLECALCIFEROL 1,000 UNITS TABLET 2000 UNITS PO (10:08)
[2020-06-28] MEDS: REMDESIVIR 100 MG/NS 250 ML 100 MG/250 ML BAG 250 MG IVPB (10:45)
--- NOTE | 2020-06-28 11:25 | PCPTNOTE ---
Attempted therapy treatment at 10:15am, held per RN. RN stated Pt will not tolerated therapy at this time and he is transferring to ICU. Will continue with POC.
[2020-06-28] MEDS: CENTRAL LINE FLUSH 10 ML IV PUSH ×2 (14:40→19:57)
--- NOTE | 2020-06-28 16:21 | PM.IMPN ---
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 (5) Glaucoma: Code(s): H40.9 - Unspecified glaucoma Status: Chronic Assessment and Plan: Continue treatment. (6) Hyperlipidemia: Code(s): E78.5 - Hyperlipidemia, unspecified Status: Chronic Assessment and Plan: Stable Subjective Date/time seen: 06/28/20 16:21 Patient states It's hard to breath, Idon't know what to do Review of Systems Review of Systems: ROS unobtainable: Yes unobtainable due to medical condition Exam Narrative: Exam Narrative: Sitting in chair. Const: General: alert, awake, acute distress mild and respiratory and ill appearing Nutritional Appearance: thin Orientation/consciousness: patient oriented x3 HENMT: Head: normocephalic Ears: hearing grossly normal bilaterally General nose exam: Normal external nose present Face and sinus: normal facial exam Eyes: General: appearance normal, both eyes and all related structures Pupils: Equal, round and reactive pupils present EOM: EOMs intact bilaterally Neck: Neck: no lymphadenopathy, supple and no JVD Resp: Effort & Inspection: tachypneic Auscultation: diminished lung sounds Cardio: Jugular venous distension: no JVD Rate: regular rate Rhythm: regular rhythm GI: Inspection: normal to inspection GI Palp: Yes Soft to palpation and Yes No hepatosplenomegaly present Skin: Rashes: no rashes Neuro: General: patient oriented x3 and CN's II-XI intact bilaterally Cranial nerves: Yes CN's II-XII intact bilaterally, Yes Equal, round and reactive pupils present and Yes Bilaterally intact EOM present Cognition (Neuro): normal cognition Speech: normal speech Motor exam (neuro): 5/5 motor strength present throughout Extrem: General: no pedal edema Objective Data Vital Signs Vital Signs: Vital Signs - 24 hr 06/27/20 18:00 06/27/20 20:00 06/27/20 20:28 Temperature 97.5 F L Pulse Rate 87 157 H 157 H Respiratory Rate 28 H 32 H Blood Pressure 149/97 H Pulse Oximetry 91 06/27/20 20:38 06/27/20 21:16 06/27/20 22:00 Temperature Pulse Rate 128 H 157 H 75 Respiratory Rate 29 H 36 H Blood Pressure Pulse Oximetry 91 06/27/20 22:40 06/28/20 00:00 06/28/20 00:15 Temperature 97.5 F L Pulse Rate 97 69 Respiratory Rate 33 H 30 H Blood Pressure 137/64 Pulse Oximetry 94 94 94 06/28/20 02:00 06/28/20 03:03 06/28/20 04:00 Temperature 97.6 F Pulse Rate 68 66 65 Respiratory Rate 30 H 30 H Blood Pressure 139/68 Pulse Oximetry 93 93 06/28/20 06:00 06/28/20 08:00 06/28/20 08:50 Temperature 97 F L Pulse Rate 68 70 69 Respiratory Rate 40 H 35 H Blood Pressure 149/57 H Pulse Oximetry 91 92 06/28/20 09:10 06/28/20 10:00 06/28/20 12:00 Temperature 97.4 F L Pulse Rate 67 71 76 Respiratory Rate 35 H 38 H Blood Pressure 147/65 H Pulse Oximetry 92 06/28/20 13:27 06/28/20 13:30 06/28/20 14:00 Temperature Pulse Rate 74 74 74 Respiratory Rate 26 H 26 H Blood Pressure Pulse Oximetry 91 91 Intake/Output Intake/Output: Intake & Output
[2020-06-28] MEDS: ALPRAZolam (*CRX) 0.25 MG TABLET PO (17:25)
[2020-06-28 20:24] LABS: Alveolar/Arterial O2 Gradient 615.9 mmHg; Base Excess ABG 3.7 mEq/l (+/-2.0); Carboxyhemoglobin 0.3 % THb (0-2.0); Fractional Inspired Oxygen 100 %; HCO3 ABG 27.7 mEq/l (22.0-26.0); Methemoglobin ABG 0.4 %THb (0-1.5); Oxygen Content ABG 17.3 %vol (16.0-22.0); Oxygen Saturation ABG 91.2 % (95.0-100.0); Oxyhemoglobin 89.7 % THb (90.0-100.0); PCO2 ABG 39.9 mmHg (35.0-45.0); PO2 ABG 57.2 mmHg (80.0-100.0); PO2 FiO2 Ratio Arterial Blood 0.57 %; Reduced Hemoglobin 9.6 %THb (0-5.0); Total Hemoglobin 13.7 g/dL (12.0-18.0)
[2020-06-28 20:25] LABS: Device NON-INVASIVE VENT; Modified Allen's Test Pass; Non-Invasive Expiratory Pressure 6 CMH2O; Non-Invasive Inspiratory Pressure 14 CMH2O; Non-Invasive Vent Rate 18 /MIN; Site Drawn RIGHT RADIAL
[2020-06-29] VITALS (24 sets, daily range): BP systolic 89–177; BP diastolic 54–84; PULSE 63–105; RESP 17–41; TEMP 35.8–36.5; O2SAT 90–96
[2020-06-29] MEDS: CENTRAL LINE FLUSH 10 ML IV PUSH (04:33)
[2020-06-29 06:49] LABS: Hematocrit 40.3 % (42.0-52.0); Hemoglobin 13.1 g/dL (14.0-18.0); Mean Corpuscular HGB Conc 32.5 g/dl (32-36); Mean Corpuscular Hemoglobin 29.5 pg (26-34); Mean Corpuscular Volume 90.8 fl (80-100); Mean Platelet Volume 10.1 fl (7.4-10.4); Platelet Count Result 151 k/mm3 (150-375); Red Blood Count 4.44 M/mm3 (4.6-6.20); White Blood Count 21.6 K/mm3 (4.5-10.0)
[2020-06-29 07:02] LABS: Alanine Aminotransferase 22 U/L (4-50); Albumin Level 2.6 g/dL (3.5-5.1); Alkaline Phosphatase 134 U/L (38-126); Anion Gap 1 mmol/L (8-16); Aspartate Amino Transferase 38 U/L (17-59); Bilirubin,Total 0.8 mg/dL (0.2-1.3); Blood Urea Nitrogen 22 mg/dL (9-20); Calcium 7.7 mg/dL (8.4-10.2); Carbon Dioxide 30 mmol/L (22-30); Chloride 105 mmol/L (98-107); Estimated CRCL calculation 114 ml/min; Estimated Glomerular Filt Rate > 60; Glucose 116 mg/dL (75-110); Magnesium 2.3 mg/dL (1.6-2.3); Phosphorus 3.7 mg/dL (2.5-4.5); Potassium 4.1 mmol/L (3.4-5.0); Sodium 136 mmol/L (137-145)
[2020-06-29 07:04] LABS: Hypochromasia 1+ (NORMAL); Lymphocytes Absolute Manual 1.29 K/mm3 (1.1-4.5); Monocytes Absolute Manual 1.29 K/mm3 (0.1-0.90); Monocytes Percent Manual 6 % (3-9); Neutrophils Percent Manual 88 % (46-73); Platelet Estimate Adequate (Adequate); Total Cells Counted 100
[2020-06-29] MEDS: ALBUTEROL SULFATE NEB 2.5 MG/0.5 ML INH INHALATION ×2 (08:13→13:50)
[2020-06-29] MEDS: BUDESONIDE RESPULE NEB 0.5 MG/2 ML AMP 1 MG INHALATION (08:13)
[2020-06-29] MEDS: MORPHINE SULFATE (*CRX) 4 MG/ML INJ IV PUSH (08:40)
[2020-06-29] MEDS: MIDAZOLAM 100MG/NS 100ML(*CRX) 100 MG/100 ML BAG IV CONT (09:05)
[2020-06-29] MEDS: FENTANYL 2,500MCG/NS250ML(*CRX 2,500 MCG/250 ML BAG IV CONT (09:05)
[2020-06-29] MEDS: CISATRACURIUM BESYLATE 200 MG in DEXTROSE 5% 80 ML 7.98 ML IV CONT (10:15)
[2020-06-29] MEDS: DEXAMETHASONE SOD PHOS INJ 4 MG/ML VIAL 6 MG IV PUSH (10:33)
[2020-06-29] MEDS: CHOLECALCIFEROL 1,000 UNITS TABLET 2000 UNITS PO (10:34)
[2020-06-29] MEDS: ENOXAPARIN 40 MG/0.4 ML SYRINGE SUB-Q (10:34)
[2020-06-29] MEDS: ASCORBIC ACID 500 MG TABLET 1000 MG PO (10:34)
[2020-06-29] MEDS: TIMOLOL MALEATE 0.5% OP SOLN 5 ML BOTTLE 1 DROP EACH EYE (10:34)
[2020-06-29] MEDS: ZINC SULFATE 220 MG CAPSULE PO (10:35)
[2020-06-29 10:40] LABS: Alveolar/Arterial O2 Gradient 534.9 mmHg; Base Excess ABG -2.8 mEq/l (+/-2.0); Carboxyhemoglobin 0.1 % THb (0-2.0); Fractional Inspired Oxygen 100 %; HCO3 ABG 28.9 mEq/l (22.0-26.0); Methemoglobin ABG 0.6 %THb (0-1.5); Oxygen Content ABG 19.9 %vol (16.0-22.0); Oxygen Saturation ABG 93.8 % (95.0-100.0); Oxyhemoglobin 92.6 % THb (90.0-100.0); PO2 FiO2 Ratio Arterial Blood 0.91 %; Reduced Hemoglobin 6.7 %THb (0-5.0); Total Hemoglobin 15.2 g/dL (12.0-18.0)
[2020-06-29 10:42] LABS: PCO2 ABG 87.1 mmHg (35.0-45.0); pH ABG 7.139 (7.350-7.450)
[2020-06-29 10:43] LABS: Device VENTILATOR; Site Drawn LEFT BRACHIAL
[2020-06-29 10:44] LABS: Arterial Blood Gas PEEP 12 cmH2O; Arterial Blood Gas Tidal Volume 450 ml; Arterial Blood Gas Vent Mode CMV; Arterial Blood Gas Ventilator rate 28 /MIN
--- NOTE | 2020-06-29 12:09 | PCPTNOTE ---
PATIENT INTUBATED THIS MORNING...NOT APPROPRIATE FOR THERAPY...ORDERS CANCELLED...WILL REQUIRE NEW ORDERS TO RESUME THERAPY FOR THIS PATIENT
[2020-06-29 12:21] LABS: Alveolar/Arterial O2 Gradient 559.1 mmHg; Carboxyhemoglobin 0.1 % THb (0-2.0); Fractional Inspired Oxygen 100 %; HCO3 ABG 27.4 mEq/l (22.0-26.0); Methemoglobin ABG 0.6 %THb (0-1.5); Oxygen Content ABG 19.1 %vol (16.0-22.0); Oxyhemoglobin 90.9 % THb (90.0-100.0); PO2 FiO2 Ratio Arterial Blood 0.79 %; Reduced Hemoglobin 8.4 %THb (0-5.0); Total Hemoglobin 14.9 g/dL (12.0-18.0)
[2020-06-29 12:22] LABS: PCO2 ABG 74.9 mmHg (35.0-45.0); pH ABG 7.181 (7.350-7.450)
[2020-06-29 12:23] LABS: Arterial Blood Gas Vent Mode CMV; Arterial Blood Gas Ventilator rate 34 /MIN; Device VENTILATOR; Site Drawn LEFT BRACHIAL
[2020-06-29 12:24] LABS: Arterial Blood Gas PEEP 10 cmH2O; Arterial Blood Gas Pressure Support 0 cmH2O; Arterial Blood Gas Tidal Volume 450 ml
--- NOTE | 2020-06-29 12:56 | WPDINTPN ---
Progress Note: A&P Assessment and Plan (1) Pneumonia due to 2019-nCoV: Code(s): U07.1 - COVID-19; J12.82 - Pneumonia due to coronavirus disease 2018 Status: Acute Assessment and Plan: -Continue remdesivir and dexamethasone for a total of 10 days -Continue DVT prophylaxis with Lovenox 40 mg subcu q.12 hours - continue Pulmicort 1 mg nebulized q.12 hours - Ensure t.i.d. ordered for improved nutrition and hydration - Gonzalez catheter can be removed and PTOT to get him up into the chair twice a day would be advantageous - upinto chair bid as tolerated. (2) Acute respiratory failure with hypoxia: Code(s): J96.01 - Acute respiratory failure with hypoxia Status: Acute Assessment and Plan: Seems to have worsened today. We had to start an IV or CPAP therapy and he may require intubation if he continues to get worse. His code status has been changed to full code with the caveats being that he does not want to be prolonged on the ventilator unnecessarily if he is not getting better or improving according to the doctor's discretion. I spoke to his family doctor today by phone and updated her on his condition I also spoke to his Yessy and updated her on his condition. (3) ARDS (adult respiratory distress syndrome): Code(s): J80 - Acute respiratory distress syndrome Status: Acute Assessment and Plan: Vent settings: 450/34/PEEP 10/ 100% with ABG 7.18/75/80 with high peak inspiratory pressures. Plateau pressures cannot be check on current ventilator but it is very clear that he has poor lung compliance and is candidate for VV Ecmo. He has been accepted to [facility] under Dr. Randle. I did call his Yessy today and explained to her why he needs to go to [facility] and she agreed to proceed with transfer and Ecmo knowing that his prognosis is very poor. Additional Plan Spoke to Dr. Randle ( Cardiothoracic Surgeon at [facility]) and spoke to his Yessy Code status: Full code Critical care time spent: 35 minutes excluding all procedures Due to a high probability of clinically significant, life threatening deterioration, the patient required my highest level of preparedness to intervene emergently and I personally spent this critical care time directly and personally managing the patient. This critical care time included obtaining a history; examining the patient; pulse oximetry; ordering and review of studies; arranging urgent treatment with development of a management plan; evaluation of patient's response to treatment; frequent reassessment; and discussions with other providers. It was exclusive of separately billable procedures and treating other patients and teaching time. Please see Assessment and Plan section and the rest of the note for further information on patient assessment and treatment Subjective Date/time seen: 06/29/20 12:56 Interval history: Que did not do well and continued to become more short of breath and hypoxic and was intubated this morning and placed on mechanical ventilator. Post intubation it was very clear that he had very little lung compliance due to severe ARDS from COVID-19 pneumonia. His blood gases on optimal ventilator settings showed severe acute hypercapnic respiratory failure. I feel at this stage is a candidate for ECMO and I called cardiac surgery at [facility] who agreed to accept him for VV Echmo. Review of Systems Review of Systems: All systems reviewed & are unremarkable except as noted in HPI and below Exam Const: General: cooperative, well developed, alert, awake, Physically active, anxious and uncomfortable Nutritional Appearance: average body habitus and well nourished Orientation/consciousness: oriented to person, oriented to place, oriented to time and patient oriented x3 Limitations: no limitations HENMT: Head: normal to inspection, normocephalic and atraumatic Eyes: General: appearance normal, both eyes and all related
--- NOTE | 2020-06-29 13:06 | PM.PROC ---
Procedure Note - Detailed Date of procedure: 06/29/20 Pre-op diagnosis: acute respiratory failure/pneumonia ARDS, COVID-19 pneumonia Post-op diagnosis: same Procedure performed: Intubation Description of procedure: the patient was remained on BiPAP with a setting of 18/6 and backup rate of 26 and 100% FiO2. He was given Versed total of 4 mg IV push, fentanyl 150 mg IV push and rocuronium 100 mg IV push. rapid sequence intubation was performed using a size 8.0 endotracheal tube with a GlideScope. The patient tolerated the procedure well and O2 saturations were in the mid 90s post intubation. A post intubation chest x-ray showed an ET tube that was slightly high and hence the endotracheal tube was advanced from 24 cm to 26 cm and secured in that position. Surgeon: Titi Knox MD Drains: No Packing: No Complications: None Disposition: ICU
--- NOTE | 2020-06-29 14:54 | PCPTNOTE ---
patient intubated earlier today...is transferring to [place]
--- NOTE | 2020-06-29 16:42 | PM.TDS ---
Transfer Discharge Sum: Prov Provider Date of admission: 06/19/20 13:34 Primary care physician: UNKNOWN,DOCTOR Admitting clinician: Clyde Montanez MD Consults: 06/21/20 Consult to Physician Routine Comment: Consulting Provider: Elvin Marte Reason for consultation: acute respiratory failure secondary to COVID-19 Has provider been notified: No Consult to Physician Routine Comment: md is aware of the pt. Consulting Provider: Jesenia Sparks public relations manager/MD group to consult: critical care physician was notified Reason for consultation: possible intubation Has provider been notified: Yes 06/28/20 Consult to Physician Routine Comment: Consulting Provider: Titi Knox public relations manager/MD group to consult: Int/CC Reason for consultation: Respiratory failure Has provider been notified: Yes Attending physician on discharge: Titi Knox Discharging clinician: Holland Hayes V. Anticipated date of transfer: 06/29/20 Receiving physician/facility: [facility] DS: Admitting Diagnosis Admitting Diagnosis Admitting Diagnosis: shortness of breath Transfer Discharge Sum: Med Medications Active and Home Medications: Home Medications atorvastatin 20 mg PO DAILY 06/19/20 [History Confirmed 06/19/20] timolol maleate 1 drp EACH EYE DAILY 06/19/20 [History Confirmed 06/19/20] Active Medications Acetaminophen (Acetaminophen 325 Mg Tablet) 650 mg PO Q6H PRN PRN Reason: Mild Pain (1-3) or Fever Last Admin: 06/24/20 08:49 Dose: 650 mg Documented by: Albuterol (Albuterol Sulfate Neb 2.5 Mg/0.5 Ml Inh) 2.5 mg INHALATION Q6HRT [facility] Last Admin: 06/29/20 13:50 Dose: 2.5 mg Documented by: Alprazolam (Alprazolam (*Crx) 0.25 Mg Tablet) 0.25 mg PO BID [facility] Last Admin: 06/29/20 16:35 Dose: Not Given Documented by: Ascorbic Acid (Ascorbic Acid 500 Mg Tablet) 1,000 mg PO DAILY [facility] Last Admin: 06/29/20 10:34 Dose: 1,000 mg Documented by: Budesonide (Budesonide Respule Neb 0.5 Mg/2 Ml Amp) 1 mg INHALATION Q12HRT [facility] Last Admin: 06/29/20 08:13 Dose: 1 mg Documented by: Docusate Sodium (Docusate Sodium 100 Mg Capsule) 100 mg PO Q12HR PRN PRN Reason: Constipation Enoxaparin Sodium (Enoxaparin 40 Mg/0.4 Ml Syringe) 40 mg SUB-Q Q12HR [facility] Last Admin: 06/29/20 10:34 Dose: 40 mg Documented by: Cefepime HCl (Maxipime 2 Gm/D5w 50 Ml) 2 gm in 50 mls @ 100 mls/hr IVPB Q8HR [facility] Last Infusion: 06/29/20 15:27 Dose: Infused Documented by: Cisatracurium Besylate 200 mg/ (Dextrose) 100 mls @ 7.977 mls/hr IV CONT .[id number] [facility]; Protocol Last Titration: 06/29/20 13:00 Dose: 3 mcg/kg/min, 7.98 mls/hr Documented by: Fentanyl Citrate (Fentanyl 2,500 Mcg/Ns 250 Ml) 2,500 mcg in 250 mls @ 7.5 mls/hr IV CONT .[id number] [facility]; Protocol Last Titration: 06/29/20 12:00 Dose: 75 mcg/hr, 7.5 mls/hr Documented by: Midazolam HCl (Versed 100 Mg/Ns 100 Ml) 100 mg in 100 mls @ 2 mls/hr IV CONT .Q50H [facility]; Protocol Last Titration: 06/29/20 12:00 Dose: 2 mg/hr, 2 mls/hr Documented by: Vancomycin HCl (Vancomycin 1,500 Mg/D5w 500 Ml) 1,500 mg in 500 mls @ 333.333 mls/hr IVPB Q12H [facility] Morphine Sulfate (Morphine Sulfate (*Crx) 2 Mg/Ml Inj) 2 mg IV PUSH Q4H PRN PRN Reason: RR > 30 Multi-Ingred Cream/Lotion/Oil/Oint (Mineral Oil/Petrolatum,White 1 Applic) 1 applic EACH EYE Q12HR [facility] Last Admin: 06/29/20 12:00 Dose: 1 applic Documented by: Polyethylene Glycol (Polyethylene Glycol 3350 17 Gm Powd.Pack) 17 gm PO QAM PRN PRN Reason: Constipation Last Admin: 06/22/20 11:53 Dose: 17 gm Documented by: Sodium Chloride (Central Line Flush) 10 ml IV PUSH Q8HR [facility] Last Admin: 06/29/20 15:27 Dose: Not Given Documented by: Sodium Chloride (Central Line Flush) 10 ml IV PUSH PRN PRN PRN Reason: with TPN bag changes Sodium Chloride (Central Line Flush) 20 ml IV PUSH PRN PRN PRN Reason: after blood draws Timolol Maleate (Timolol Maleate 0.5% Op Soln 5 Ml Bottle) 1 drop EACH EY
--- NOTE | 2020-06-29 17:30 | PC.NURSE ---
after report called to [facility] , [facility] here and switched all over to their equipment, used lift to place him on stretcher, they left unit with pt, prior to this notified of transfer and notified [facility] that pt and transporters left the unit at 1730
--- NOTE | 2020-07-02 14:15 | WPDPROCEDUR ---
Procedures Intubation Intubation Date: 06/29/20 Intubation Time: 10:00 A pre-procedural Time-Out was completed immediately before starting the procedure and confirmed: Patient Identification, Site, Procedure, Patient Position and the Availability of Requisite Equipment: Yes Sedative: versed Mg given: 4 Paralytic: rocuronium Mg given: 100 Laryngoscope: other (Glidoscope) ET tube size: cuffed Tube secured depth (cm): 24 Tube secured location: teeth Tube placement confirmation: visualized tube passing through cords, equal breath sounds bilaterally and confirmation by capnometry Patient tolerated procedure: well and no complications
== END 2020-06-29 17:30 | disposition short-term general hospital (02) | DRG 208 ==
LOC: ANHED 13:33 → ANHIMU 06-20 13:18 → ANHICU 06-30 12:01 → ANHIMU 06-30 12:01
PROVIDERS: Internal Medicine; Internal Medicine Critical Care Medicine; Nurse Practitioner; Admitting Provider Internal Medicine; Emergency Provider Emergency Medicine; Visit Provider Internal Medicine
DX: U07.1 COVID-19 (principal); J12.82 Pneumonia due to coronavirus disease 2019; I21.4 Non-ST elevation (NSTEMI) myocardial infarction; J80 Acute respiratory distress syndrome; J81.1 Chronic pulmonary edema; E78.5 Hyperlipidemia, unspecified; H40.9 Unspecified glaucoma; Z79.899 Other long term (current) drug therapy
CPT/HCPCS: 36415; 36430; 36569; 36600; 71045; 71275; 80048; 80053; 82375; 82565; 82805; 83036; 83050; 83615; 83735; 83880; 84100; 84439; 84443; 84460; 84480; 84484; 85025; 85027; 85380; 85610; 85730; 86140; 86850; 86900; 86901; 87040; 87070; 87086; 87205; 87804; 93005; 93306; 94002; 94003; 94640; 96374; 97110; 97161; 97165; 97530; 99291; A9270; C1751; C9803; J0456; J0692; J0696; J1100; J1650; J1940; J2250; J2270; J3010; J3370; J7050; J7120; P9059; Q9967; U0003; U0005